=== PATIENT | male | born 1975 | race African-American/Black ===

== ENCOUNTER 2016-06-16 04:36 | Emergency (ER) | payer SELFPAY ==
[2016-06-16 04:44] VITALS: BP 129/87
[2016-06-16] MEDS ORDERED: HYDROCODONE/ACETAMINOPHEN 5-325 MG 6 TAB/DSPK PO PRN (05:24)
[2016-06-16] MEDS ORDERED: PENICILLIN V POTASSIUM 500 MG TABLET PO ONE (05:24)
--- NOTE | 2016-06-16 05:28 | ER Document Report ---
HPI - HPI Patient complains to provider of: dental pain Pain Level: 4 Context: Patient is a 40-year-old male that comes emergency department for chief complaint of pain in the left lower part of his jaw, he states symptoms started worsening about 2 days ago, he states he has a known fracture of the tooth that happened a while ago. He denies sore throat, neck pain, fever, history of the same. Eyes any daily medications or known past medical history. - DERM Skin Color: Normal Past Medical History - General Information source: Patient - Social History Smoking Status: Never Smoker Frequency of alcohol use: None Drug Abuse: None Lives with: Family Family History: Reviewed & Not Pertinent Patient has suicidal ideation: No Patient has homicidal ideation: No - Medical History Medical History: Negative Renal/ Medical History: Denies: Hx Peritoneal Dialysis Surgical Hx: Negative - Immunizations Immunizations up to date: Yes Hx Diphtheria, Pertussis, Tetanus Vaccination: Yes Vertical Provider Document - CONSTITUTIONAL General Appearance: WD/WN, Mild Distress - Patient holding his left jaw - INFECTION CONTROL TRAVEL OUTSIDE OF THE [place] IN LAST 30 DAYS: No - HEENT HEENT: Atraumatic, Normocephalic. negative: Pharyngeal Exudate, Pharyngeal Tenderness Mouth Diagram: 1 - Dental fracture with decay and mild surrounding erythema, no drainable abscess, no other abnormalities - NECK Neck: Normal Inspection - RESPIRATORY Respiratory: Breath Sounds Normal, No Respiratory Distress O2 Sat by Pulse Oximetry: 97 - CARDIOVASCULAR Cardiovascular: Regular Rate, Regular Rhythm - GI/ABDOMEN Gastrointestinal: Abdomen Soft, Abdomen Non-Tender - BACK Back: Normal Inspection - NEURO Level of Consciousness: Awake, Alert, Appropriate Motor/Sensory: No Motor Deficit, No Sensory Deficit - DERM Integumentary: Warm, Dry, No Rash Course - Vital Signs Vital signs: Temp Pulse Resp BP Pulse Ox 98.3 F 98 16 129/87 H 97 06/16/16 04:41 06/16/16 04:41 06/16/16 04:41 06/16/16 04:41 06/16/16 04:41 Discharge - Discharge Clinical Impression: Pain, dental Condition: Stable Disposition: HOME, SELF-CARE Additional Instructions: Take the penicillin antibiotic as directed. Take the pain medication if needed. Follow-up with the dentist, see list, if you do not this will continue to occur. Return to the emergency department for any concerning worsening symptoms. Prescriptions: Hydrocodone/Acetaminophen [[place] 5-325 mg Tablet] 1 - 2 tab PO ASDIR #12 tablet Penicillin V Potassium [Penicillin Vk 500 mg Tablet] 500 mg PO BID #20 tablet Forms: Return to Work
== END 2016-06-16 05:30 | disposition home or self-care (01) ==
LOC: ER 04:36
DX: K08.89 Other specified disorders of teeth and supporting structures (principal); R68.84 Jaw pain
CPT/HCPCS: 99282

== ENCOUNTER 2016-06-24 00:37 | Emergency (ER) | payer SELFPAY ==
[2016-06-24] MEDS ORDERED: AMOXICILLIN TRIHYDRATE 500 MG CAPSULE PO ONE (01:28)
[2016-06-24] MEDS ORDERED: IBUPROFEN 600 MG TABLET PO ONE (01:28)
--- NOTE | 2016-06-24 01:28 | ER Document Report ---
ED Oral Problem - General Mode of Arrival: Ambulatory Information source: Patient TRAVEL OUTSIDE OF THE [place] IN LAST 30 DAYS: No - HPI Patient complains to provider of: Toothache Onset: Other Quality of pain: Achy Similar symptoms previously: Yes Recently seen / treated by doctor/dentist: Yes - General Chief Complaint: Toothache Stated Complaint: TOOTHACHE Notes: Patient is a 40-year-old male that presents to the emergency department today with complaints of dental pain. Patient was seen 2 weeks ago for the same pain. Patient never followed up with a dentist as directed. Patient also did not take his antibiotics as prescribed. (LIZZETTE SMITH) - Related Data Allergies/Adverse Reactions: No Known Allergies Allergy (Unverified 06/24/16 00:48) Past Medical History - General Information source: Patient - Social History Smoking Status: Current Every Day Smoker Cigarette use (# per day): Yes Frequency of alcohol use: None Drug Abuse: None Family History: Reviewed & Not Pertinent Patient has suicidal ideation: No Patient has homicidal ideation: No - Medical History Medical History: Negative Surgical Hx: Negative - Immunizations Immunizations up to date: Yes Hx Diphtheria, Pertussis, Tetanus Vaccination: Yes Review of Systems - Review of Systems Constitutional: No symptoms reported EENT: See HPI, Dental problem Cardiovascular: No symptoms reported Respiratory: No symptoms reported Gastrointestinal: No symptoms reported Genitourinary: No symptoms reported Male Genitourinary: No symptoms reported Musculoskeletal: No symptoms reported Skin: No symptoms reported Hematologic/Lymphatic: No symptoms reported Neurological/Psychological: No symptoms reported -: Yes All other systems reviewed and negative Physical Exam - Vital signs Vitals: Temp Pulse Resp BP Pulse Ox 98.3 F 95 16 125/78 96 06/24/16 00:45 06/24/16 00:45 06/24/16 00:45 06/24/16 00:45 06/24/16 00:45 - Notes Notes: Physical Exam: General: Alert, appears well. HEENT: Normocephalic. Atraumatic. PERRL. Extraocular movements intact. Oropharynx clear. Decayed dentition throughout with overlying nicotine stains. Dental caries throughout. Neck: Supple. Respiratory: No respiratory distress. Abdominal: Normal Inspection. No distension. Extremities: Moves all four extremities. Neurological: Cranial nerves II-XII grossly intact bilaterally. Normal cognition. AAOx4. Normal speech. Psychological: Normal affect. Normal Mood. Skin: Warm. Dry. Normal color. (LIZZETTE SMITH) Course - Re-evaluation Re-evalutation: 06/24/16 01:30 Patient presents emergency Department with request for pain medication. He was seen and evaluated on 427 with dental problems did not take his antibiotics took his pain medication didn't follow primary care or dentist as directed still bothering him now both of his bilateral molars are ground down are not new or different there is no associated. No abscess swelling or abscess no facial tenderness difficulty breathing or swallowing. Encourage the patient that were going give him another dose of amoxicillin and Motrin will not give him any narcotics for this. He is instructed to follow up with the clinic which we have given him and his dental physician for any ongoing chronic related complaints regards to his teeth as we are not dentists and discussed reasons for ED return sooner (KASEY PHELAN) - Vital Signs Vital signs: Temp Pulse Resp BP Pulse Ox 97.8 F 82 16 128/72 H 95 06/24/16 01:52 06/24/16 01:52 06/24/16 01:52 06/24/16 01:52 06/24/16 01:52 Discharge - Discharge Clinical Impression: recurrent visit odontalgia, poor overall dentition Condition: Stable Disposition: HOME, SELF-CARE Instructions: [facility], Toothache ([facility]), Penicillin V K ([facility]) Prescriptions: Ibuprofen [Motrin 600 Mg Tablet] 600 mg PO TID #12 tablet Penicillin V Potassium [Penicillin Vk 500 mg Tablet] 500 mg PO BID #20 tablet Referrals: [facility] [Provider Group] (Call for an appointment to be seen in 3-4 days you must see primary care physician or dentist for any ongoing proms with your teeth return for increasing worsening or new symptoms) Scribe Attestation: 06/24/16 01:30 I personally performed the services described in the documentation reviewed the documentation recorded by my scribe in my presence and it accurately and completely records my words and actions (KASEY PHELAN) Scribe Documentation - Scribe Written by Madi:: Madi Byrnes, [id number] 06/24/2016 acting as scribe for :: Marv
[2016-06-24 01:54] VITALS: BP 128/72
== END 2016-06-24 01:54 | disposition home or self-care (01) ==
LOC: ER 00:37
DX: K08.9 Disorder of teeth and supporting structures, unspecified (principal); F17.210 Nicotine dependence, cigarettes, uncomplicated
CPT/HCPCS: 99282

== ENCOUNTER 2016-07-29 10:51 | Emergency (ER) | payer SELFPAY ==
--- NOTE | 2016-07-29 11:42 | ER Document Report ---
ED Medical Screen (RME) - General Chief Complaint: Abdominal Pain Stated Complaint: ABDOMINAL PAIN Time Seen by Provider: 07/29/16 11:34 Mode of Arrival: Medic Information source: Patient Notes: This 40-year-old male patient comes emergency room by EMS complaining of mid abdomen and left upper quadrant abdominal pain. It is been going on for a few days. He drinks 12 pack per evening by history. He was seen at [facility] emergency room last month for the same thing. I have greeted and performed a rapid initial assessment of this patient. A comprehensive ED assessment and evaluation of the patient, analysis of test results and completion of the medical decision making process will be conducted by additional ED providers. TRAVEL OUTSIDE OF THE [place] IN LAST 30 DAYS: No - Related Data Allergies/Adverse Reactions: No Known Allergies Allergy (Verified 07/29/16 10:57) Past Medical History - Social History Chew tobacco use (# tins/day): No Frequency of alcohol use: Heavy Drug Abuse: Marijuana Renal/ Medical History: Denies: Hx Peritoneal Dialysis Surgical Hx: Negative - Immunizations Immunizations up to date: Yes Hx Diphtheria, Pertussis, Tetanus Vaccination: Yes Physical Exam - Vital signs Vitals: Temp Pulse Resp BP Pulse Ox 98.5 F 88 16 127/89 H 100 07/29/16 10:57 07/29/16 10:57 07/29/16 10:57 07/29/16 10:57 07/29/16 10:57 Course - Vital Signs Vital signs: Temp Pulse Resp BP Pulse Ox 98.5 F 88 16 127/89 H 100 07/29/16 10:57 07/29/16 10:57 07/29/16 10:57 07/29/16 10:57 07/29/16 10:57
[2016-07-29 12:27] LABS: ABSOLUTE BASOPHILS # (AUTO) 0.1 10^3/uL (0.0-0.2); ABSOLUTE EOSINOPHILS # (AUTO) 0.2 10^3/uL (0.0-0.6); ABSOLUTE NEUT (AUTO) 5.6 10^3/uL (1.7-8.2); BASOPHILS % (AUTO) 0.9 % (0-2); EOSINOPHILS % (AUTO) 2.3 % (0-6); HEMATOCRIT 49.9 % (37.9-51.0); HEMOGLOBIN 17.1 g/dL (13.5-17.0); HGB HCT DIFFERENCE 1.4; LYMPHOCYTES % (AUTO) 13.3 % (13-45); MEAN CORPUSCULAR HEMOGLOBIN 35.2 pg (27.0-33.4); MEAN CORPUSCULAR HGB CONC 34.3 g/dL (32.0-36.0); MEAN CORPUSCULAR VOLUME 103 fl (80-97); MONOCYTES % (AUTO) 12.3 % (3-13); RED BLOOD COUNT 4.86 10^6/uL (4.35-5.55); RED CELL DISTRIBUTION WIDTH 13.3 % (11.5-14.0); SEGMENTED NEUTROPHILS % (AUTO) 71.2 % (42-78); WHITE BLOOD COUNT 7.8 10^3/uL (4.0-10.5)
[2016-07-29 12:54] LABS: ALANINE AMINOTRANSFERASE 34 U/L (21-72); ALBUMIN 4.5 g/dL (3.5-5.0); ALKALINE PHOSPHATASE 69 U/L (38-126); ANION GAP 11 (5-19); ASPARTATE AMINO TRANSFERASE 36 U/L (17-59); BILIRUBIN,DIRECT 0.4 mg/dL (0.0-0.4); BILIRUBIN,TOTAL 0.7 mg/dL (0.2-1.3); BLOOD UREA NITROGEN 8 mg/dL (7-20); CALCIUM 10.1 mg/dL (8.4-10.2); CARBON DIOXIDE 31 mmol/L (22-30); CHLORIDE 95 mmol/L (98-107); CREATININE RESULT 0.98 mg/dL (0.52-1.25); GLUCOSE 73 mg/dL (75-110); LIPASE 26.3 U/L (23-300); SODIUM 137.4 mmol/L (137-145); TOTAL PROTEIN 8.2 g/dL (6.3-8.2)
[2016-07-29 12:55] LABS: POTASSIUM 4.8 mmol/L (3.6-5.0)
[2016-07-29 13:24] LABS: URINE BARBITURATES SCREEN NEGATIVE; URINE METHADONE SCREEN NEGATIVE; URINE OPIATES LOW NEGATIVE; URINE PHENCYCLIDINE SCREEN NEGATIVE
[2016-07-29 13:25] LABS: APPEARANCE,URINE CLEAR; BILIRUBIN,URINE NEGATIVE (NEGATIVE); GLUCOSE, URINE >=500 mg/dL (NEGATIVE); KETONES,URINE NEGATIVE (NEGATIVE); LEUKOCYTE ESTERASE,URINE NEGATIVE (NEGATIVE); NITRITE,URINE NEGATIVE (NEGATIVE); PROTEIN,URINE NEGATIVE (NEGATIVE); URINE SPECIFIC GRAVITY 1.028
[2016-07-29] MEDS ORDERED: PANTOPRAZOLE SODIUM 40 MG VIAL IV ONE (14:03)
[2016-07-29] MEDS ORDERED: LIDOCAINE 2% VISCOUS SOLN 20 ML UDCUP PO ONE (14:03)
[2016-07-29] MEDS ORDERED: METOCLOPRAMIDE HCL ORAL SOLN 10 MG/10 ML UDCUP PO ONE (14:03)
[2016-07-29] MEDS ORDERED: MAG HYDROX/AL HYDROX/SIMETH SUSP 30 ML UDCUP PO ONE (14:03)
--- NOTE | 2016-07-29 14:06 | ER Document Report ---
ED General - General Chief Complaint: Abdominal Pain Stated Complaint: ABDOMINAL PAIN Time Seen by Provider: 07/29/16 11:34 Mode of Arrival: Medic Information source: Patient Notes: This is a 40-year-old male with a history of alcohol abuse who presents for evaluation of left-sided abdominal pain. He states that this pain is been progressing for the past 3 days but became severe today. He has had nausea and vomiting and his last emesis was yesterday. He had a loose bowel movement yesterday. He denies fevers or chills. No cough or congestion. No urinary symptoms. Of note he states he had similar symptoms a month or 2 ago and was seen at outside ER and states he was diagnosed with gastroenteritis. He states he feels much worse today. TRAVEL OUTSIDE OF THE [place] IN LAST 30 DAYS: No - Related Data Allergies/Adverse Reactions: No Known Allergies Allergy (Verified 07/29/16 10:57) Past Medical History - General Information source: Patient - Social History Smoking Status: Current Every Day Smoker Chew tobacco use (# tins/day): No Frequency of alcohol use: Heavy Drug Abuse: Marijuana Family History: Reviewed & Not Pertinent Patient has suicidal ideation: No Patient has homicidal ideation: No Renal/ Medical History: Denies: Hx Peritoneal Dialysis Surgical Hx: Negative - Immunizations Immunizations up to date: Yes Hx Diphtheria, Pertussis, Tetanus Vaccination: Yes Review of Systems - Review of Systems Constitutional: No symptoms reported. denies: Chills, Fever EENT: No symptoms reported Cardiovascular: No symptoms reported Respiratory: No symptoms reported Gastrointestinal: See HPI Genitourinary: No symptoms reported Musculoskeletal: No symptoms reported Skin: No symptoms reported Hematologic/Lymphatic: No symptoms reported Neurological/Psychological: No symptoms reported Physical Exam - Vital signs Vitals: Temp Pulse Resp BP Pulse Ox 98.5 F 88 16 127/89 H 100 07/29/16 10:57 07/29/16 10:57 07/29/16 10:57 07/29/16 10:57 07/29/16 10:57 - Notes Notes: PHYSICAL EXAMINATION: GENERAL: Well-appearing, well-nourished and in no acute distress. Very pleasant and conversant HEAD: Atraumatic, normocephalic. EYES: Pupils equal round and reactive to light, extraocular movements intact, sclera anicteric, conjunctiva are normal. ENT: nares patent, oropharynx clear without exudates. Moist mucous membranes. NECK: Normal range of motion, supple without lymphadenopathy LUNGS: Breath sounds clear to auscultation bilaterally and equal. No wheezes rales or rhonchi. HEART: Regular rate and rhythm without murmurs ABDOMEN: Soft, mild TTP to left mid abdomen, normoactive bowel sounds. No guarding, no rebound. No masses appreciated. EXTREMITIES: Normal range of motion, no pitting or edema. NEUROLOGICAL: Cranial nerves grossly intact. Normal speech, normal gait. No gross focal motor or sensory deficits appreciated. PSYCH: Normal mood, normal affect. SKIN: Warm, Dry, normal turgor, no rashes or lesions noted. Course - Re-evaluation Re-evalutation: 07/29/16 20:[address] results with pateint and stressed importance of followup with PCP and with GI for further evaluation. Pt voiced understanding. He is feeling better and would like to go home. Return precautions discussed. - Vital Signs Vital signs: Temp Pulse Resp BP Pulse Ox 98 F 75 16 121/87 H 100 07/29/16 18:21 07/29/16 18:21 07/29/16 18:21 07/29/16 18:21 07/29/16 18:21 - Laboratory Result Diagrams: 07/29/16 11:45 07/29/16 11:45 Laboratory results interpreted by me: 07/29/16 07/29/16 07/29/16 11:45 11:45 11:45 Hgb 17.1 H MCV 103 H MCH 35.2 H Chloride 95 L Carbon Dioxide 31 H Glucose 73 L Urine Glucose (UA) >=500 H Urine Urobilinogen 2.0 H - Diagnostic Test Radiology reviewed: Reports reviewed - CT: gastric wall thickening Discharge - Discharge Clinical Impression: Gastric wall thickening Abdominal pain Qualifiers: Abdominal location: unspecified location Qualified Code(s): R10.9 - Unspecified abdominal pain Condition: Stable Disposition: HOME, SELF-CARE Additional Instructions: ABDOMINAL PAIN: There are many causes of abdominal pain. Pain can mean a serious problem requiring surgery (such as appendicitis). It can also be an innocent problem that goes away on its own (such as a viral infection). Often, time must pass to determine the cause of pain. The physician does not feel that hospitalization is necessary, at present. Things may change within the next 24 hours. Call the doctor or come back for re- examination if any problems occur, such as: (1) Pain that becomes more severe, steady, or becomes concentrated in one specific area. Also, pain that is more severe with movement or coughing. (2) Vomiting that persists or becomes more frequent. (3) Blood in the vomitus, urine, or bowel movements. Blood in the stool may have a tarry or black appearance. (4) Shaking chills or fever greater than 100 degrees F. (5) The abdomen becomes more distended or swollen. (6) Bowel movements cease. (7) Failure to improve as expected. ANTINAUSEA MEDICATION: You have been given a medication to suppress nausea and vomiting. This type of medication can be given as a shot, pill, or suppository. It will usually last for many hours. Pills and shots usually last six to eight hours, suppositories last about 12 hours. For the typical illness, only one or two doses of the medication may be necessary. Mild lightheadedness may occur. This type of medicine can cause drowsiness. Do not drive or operate dangerous machinery while under its influence. Do not mix with alcohol. See your doctor at once if you have muscle spasms or tightness, or uncontrollable motions (particularly of the neck, mouth, or jaw). Persistent vomiting or severe lightheadedness should also be evaluated by the physician. ALCOHOL ABUSE Alcohol overdosage is usually due to an underlying emotional or psychiatric problem. You may benefit from counselling. If "binge" drinking is an ongoing problem for you, or if you drink ANY AMOUNT of alcohol EVERY day, you most likely have a tendency to alcoholism. You should avoid alcohol totally. We can refer you for treatment. Persons with alcohol problems are often also prone to other addictions -- you should discuss any use of medications or drugs with the doctor. Get extra fluids for the next 24 hours. Call the doctor if there is repeated vomiting, increasing headache, decreasing level of alertness, or any other worsening. FOLLOW-UP CARE: If you have been referred to a physician for follow-up care, call the physician s office for an appointment as you were instructed or within the next two days. If you experience worsening or a significant change in your symptoms, notify the physician immediately or return to the Emergency Department at any time for re-evaluation. Follow up with GI Dr[facility] clinic this week as instructed. Your CT demonstrated wall thickening of your stomach, which requires further evaluation to determine the cause and treatment. It is very important that you follow up with GI, call the office on Monday. Prescriptions: Promethazine HCl [Phenergan 25 mg Tablet] 1 tab PO Q6H PRN #12 tablet PRN Reason: Ranitidine HCl [Zantac 150 mg Tablet] 150 mg PO BID #60 tablet Referrals: LARISSA DE LA PAZ MD [ACTIVE STAFF] - Follow up in 3-5 days
--- NOTE | 2016-07-29 17:47 | RADIOLOGY REPORT (SQ) ---
EXAM DESCRIPTION: CT ABD/PELVIS WITH IV ORAL COMPLETED DATE/TIME: 07/29/2016 5:16 pm REASON FOR STUDY: left sided abdominal pain, N/V COMPARISON: None. TECHNIQUE: CT scan of the abdomen and pelvis performed using helical scanning technique with dynamic intravenous contrast injection. Oral contrast. Images reviewed with lung, soft tissue, and bone win dows. Reconstructed coronal and sagittal MPR images reviewed. Delayed images for evaluation of the ur inary system also acquired. All images stored on PACS. All CT scanners at this facility use dose modulation, iterative reconstruction, and/or weight based d osing when appropriate to reduce radiation dose to as low as reasonably achievable (ALARA). [facility]: Dose Right [facility]: CareDose [facility]: Dose Right [facility]: Teradose 4D [facility]: mInfo CONTRAST TYPE AND DOSE: 75 cc Isovue 370- low osmolar. RENAL FUNCTION: Creatinine 1 BUN 8 RADIATION DOSE: 11.60mGy. LIMITATIONS: None. FINDINGS: LOWER CHEST: No significant findings. No nodules or infiltrates. LIVER: Normal size. No masses or dilated ducts. SPLEEN: Normal size. No focal lesions. PANCREAS: No masses. No significant calcifications. No adjacent inflammation or peripancreatic fluid collections. Pancreatic duct not dilated. GALLBLADDER: No identified stones by CT criteria. No inflammatory changes to suggest cholecystitis. ADRENAL GLANDS: No significant masses or asymmetry. RIGHT KIDNEY AND URETER: No solid masses. No significant calcifications. No hydronephrosis or hyd roureter. LEFT KIDNEY AND URETER: No solid masses. No significant calcifications. No hydronephrosis or hydr oureter. AORTA AND VESSELS: No aneurysm. No dissection. Renal arteries, SMA, celiac without stenosis. RETROPERITONEUM: No retroperitoneal adenopathy, hemorrhage or masses. BOWEL AND PERITONEAL CAVITY: There is significant thickening of the wall of the stomach. APPENDIX: Not identified. PELVIS: No mass or free fluid. Normal bladder. ABDOMINAL WALL: No masses. No hernias. BONES: No significant or acute findings. OTHER: No other significant finding. IMPRESSION: There is marked thickening of the wall of the stomach. Consider gastric lymphoma, Menet rier disease, gastritis. TECHNICAL DOCUMENTATION: JOB ID: [id number] Quality ID # [id number]: Final reports with documentation of one or more dose reduction techniques (e.g., Au tomated exposure control, adjustment of the mA and/or kV according to patient size, use of iterative reconstruction technique) 2010 [employer]- All Rights Reserved
[2016-07-29 18:22] VITALS: BP 121/87
== END 2016-07-29 18:35 | disposition home or self-care (01) ==
LOC: ER 10:51
DX: R10.9 Unspecified abdominal pain (principal); F17.200 Nicotine dependence, unspecified, uncomplicated; R19.7 Diarrhea, unspecified
CPT/HCPCS: 99284; 96374; 36415; 80307 ×2; 83690; 85025; 80053; 81001; 74177; J3490; S0164

== ENCOUNTER 2016-08-16 13:49 | Emergency (ER) | payer SELFPAY ==
[2016-08-16] MEDS ORDERED: ONDANSETRON HCL INJ/PF 4 MG/2 ML SDV IV ONE (14:39)
[2016-08-16] MEDS ORDERED: FAMOTIDINE INJ/PF 20 MG/2 ML SDV IV ONE (14:39)
[2016-08-16] MEDS ORDERED: NORMAL SALINE 1000 ML 1,000 ML IV PRN (14:39)
--- NOTE | 2016-08-16 14:44 | ER Document Report ---
ED GI/ - General Chief Complaint: Abdominal Pain Stated Complaint: ABDOMINAL PAIN Time Seen by Provider: 08/16/16 14:16 Mode of Arrival: Ambulatory Information source: Patient TRAVEL OUTSIDE OF THE [place] IN LAST 30 DAYS: No - HPI Patient complains to provider of: Abdominal pain, Vomiting Onset: Other - 2-3 days Timing/Duration: Gradual Quality of pain: Achy Severity at maximum: Severe Severity in ED: Severe Pain Level: 4 Location: Left flank Associated symptoms: Loss of appetite, Nausea, Vomiting Exacerbated by: Denies Relieved by: Denies Similar symptoms previously: Yes Recently seen / treated by doctor: Yes Notes: 08/16/16 14:42 Patient is a 40-year-old male with no diagnosed past medical history, presents to the emergency room complaining of left-sided abdominal pain with nausea and vomiting that started 2 days ago, he reports he is brownish colored vomitus which appears to be blood, he was a heavy drinker up until 2 weeks ago, he was seen in this emergency room on 07/29/2016 and diagnosed with gastric wall thickening, was given a prescription for Phenergan and ranitidine which he states he did not fill because he could not afford, states he has not had an alcoholic beverage since that visit as well, and he has not had the opportunity to follow-up with a primary care provider or livestock haulier as well, he is a smoker, denies any abdominal surgeries in the past, not currently taking any medications - Related Data Allergies/Adverse Reactions: No Known Allergies Allergy (Verified 07/29/16 10:57) Past Medical History - General Information source: Patient - Social History Smoking Status: Current Every Day Smoker Frequency of alcohol use: former Drug Abuse: None Family History: Reviewed & Not Pertinent Renal/ Medical History: Denies: Hx Peritoneal Dialysis Surgical Hx: Negative - Immunizations Immunizations up to date: Yes Hx Diphtheria, Pertussis, Tetanus Vaccination: Yes Review of Systems - Review of Systems Constitutional: No symptoms reported EENT: No symptoms reported Cardiovascular: No symptoms reported Respiratory: No symptoms reported Gastrointestinal: See HPI Genitourinary: No symptoms reported Male Genitourinary: No symptoms reported Musculoskeletal: No symptoms reported Skin: No symptoms reported Hematologic/Lymphatic: No symptoms reported Neurological/Psychological: No symptoms reported -: Yes All other systems reviewed and negative Physical Exam - Vital signs Vitals: Temp Pulse Resp BP Pulse Ox 97.8 F 93 18 94/62 L 100 08/16/16 13:58 08/16/16 13:58 08/16/16 13:58 08/16/16 13:58 08/16/16 13:58 Interpretation: Hypotensive - General General appearance: Appears well, Alert - HEENT Head: Normocephalic, Atraumatic Eyes: Normal Pupils: PERRL - Respiratory Respiratory status: No respiratory distress Chest status: Nontender Breath sounds: Normal Chest palpation: Normal - Cardiovascular Rhythm: Regular Heart sounds: Normal auscultation Murmur: No - Abdominal Inspection: Normal Distension: No distension Bowel sounds: Normal Tenderness: Tender - Tenderness to palpate in the left mid abdomen Organomegaly: No organomegaly - Back Back: Normal, Nontender - Extremities General upper extremity: Normal inspection, Nontender, Normal color, Normal ROM , Normal temperature General lower extremity: Normal inspection, Nontender, Normal color, Normal ROM , Normal temperature, Normal weight bearing. No: Gilbert's sign - Neurological Neuro grossly intact: Yes Cognition: Normal Orientation: AAOx4 Joanna Coma Scale Eye Opening: Spontaneous Joanna Coma Scale Verbal: Oriented [place] Coma Scale Motor: Obeys Commands [place] Coma Scale Total: 15 Speech: Normal Motor strength normal: LUE, RUE, LLE, RLE Sensory: Normal - Psychological Associated symptoms: Normal affect, Normal mood - Skin Skin Temperature: Warm Skin Moisture: Dry Skin Color: Normal Course - Re-evaluation Re-evalutation: 08/16/16 15:59 Reports feeling much better and requesting something to drink, he was given juice and crackers, if he tolerates p.o. intake he will be discharged with instructions for follow-up, patient acknowledges understanding and agreement with this plan symptoms are consistent with gastritis, were discussed with patient at bedside which are unremarkable, physical exam findings are unremarkable with no abdominal tenderness on reevaluation - Vital Signs Vital signs: Temp Pulse Resp BP Pulse Ox 97.8 F 93 18 94/62 L 100 08/16/16 13:58 08/16/16 13:58 08/16/16 13:58 08/16/16 13:58 08/16/16 13:58 - Laboratory Result Diagrams: 08/16/16 13:55 08/16/16 13:55 Laboratory results interpreted by me: 08/16/16 08/16/16 13:55 13:55 RBC 4.03 L MCV 101 H MCH 34.4 H Carbon Dioxide 31 H ALT 20 L Albumin 3.3 L Discharge - Discharge Clinical Impression: Gastritis Qualifiers: Gastritis type: unspecified gastritis Chronicity: chronic Gastritis bleeding: presence of bleeding unspecified Qualified Code(s): K29.50 - Unspecified chronic gastritis without bleeding Condition: Stable Disposition: HOME, SELF-CARE Instructions: Abdominal Pain ([facility]), Gastritis ([facility]), Gastroenterology Additional Instructions: Follow up with your primary care provider in one to 2 days. Return to the emergency room immediately if symptoms worsen or any additional concerns. Prescriptions: Metoclopramide HCl [Reglan 10 mg Tablet] 1 - 2 tab PO ASDIR PRN #25 tablet PRN Reason: Sucralfate [Carafate 1 gm Tablet] 1 gm PO ACHS #120 tablet Forms: Smoking Cessation Education
[2016-08-16 14:46] LABS: ABSOLUTE BASOPHILS # (AUTO) 0.1 10^3/uL (0.0-0.2); ABSOLUTE EOSINOPHILS # (AUTO) 0.4 10^3/uL (0.0-0.6); ABSOLUTE LYMPHOCYTES (AUTO) 1.5 10^3/uL (0.5-4.7); ABSOLUTE MONOCYTES (AUTO) 0.9 10^3/uL (0.1-1.4); ABSOLUTE NEUT (AUTO) 6.1 10^3/uL (1.7-8.2); BASOPHILS % (AUTO) 1.2 % (0-2); HEMATOCRIT 40.7 % (37.9-51.0); HEMOGLOBIN 13.9 g/dL (13.5-17.0); LYMPHOCYTES % (AUTO) 16.7 % (13-45); MEAN CORPUSCULAR HEMOGLOBIN 34.4 pg (27.0-33.4); MEAN CORPUSCULAR VOLUME 101 fl (80-97); MONOCYTES % (AUTO) 10.2 % (3-13); RED BLOOD COUNT 4.03 10^6/uL (4.35-5.55); RED CELL DISTRIBUTION WIDTH 13.1 % (11.5-14.0); SEGMENTED NEUTROPHILS % (AUTO) 67.9 % (42-78); WHITE BLOOD COUNT 8.9 10^3/uL (4.0-10.5)
[2016-08-16 14:47] LABS: APPEARANCE,URINE CLEAR; BILIRUBIN,URINE NEGATIVE (NEGATIVE); GLUCOSE, URINE NEGATIVE (NEGATIVE); KETONES,URINE NEGATIVE (NEGATIVE); LEUKOCYTE ESTERASE,URINE NEGATIVE (NEGATIVE); NITRITE,URINE NEGATIVE (NEGATIVE); PROTEIN,URINE NEGATIVE (NEGATIVE); URINE SPECIFIC GRAVITY 1.016; UROBILINOGEN,URINE NEGATIVE mg/dL (<2.0)
[2016-08-16 15:03] LABS: ALANINE AMINOTRANSFERASE 20 U/L (21-72); ALBUMIN 3.3 g/dL (3.5-5.0); ALKALINE PHOSPHATASE 58 U/L (38-126); ANION GAP 9 (5-19); ASPARTATE AMINO TRANSFERASE 17 U/L (17-59); BILIRUBIN,DIRECT 0.3 mg/dL (0.0-0.4); BILIRUBIN,TOTAL 0.3 mg/dL (0.2-1.3); BLOOD UREA NITROGEN 12 mg/dL (7-20); CALCIUM 9.2 mg/dL (8.4-10.2); CARBON DIOXIDE 31 mmol/L (22-30); CHLORIDE 98 mmol/L (98-107); CREATININE RESULT 0.92 mg/dL (0.52-1.25); GLUCOSE 95 mg/dL (75-110); LIPASE 30.6 U/L (23-300); POTASSIUM 4.6 mmol/L (3.6-5.0); SODIUM 137.5 mmol/L (137-145); TOTAL PROTEIN 6.3 g/dL (6.3-8.2)
[2016-08-16 15:05] LABS: ALCOHOL < 10 mg/dL (NONE DETECTED)
[2016-08-16 15:31] LABS: URINE BARBITURATES SCREEN NEGATIVE; URINE METHADONE SCREEN NEGATIVE; URINE OPIATES LOW NEGATIVE; URINE PHENCYCLIDINE SCREEN NEGATIVE
[2016-08-16 16:16] VITALS: BP 126/65
== END 2016-08-16 16:17 | disposition home or self-care (01) ==
LOC: ER 13:49
DX: K29.50 Unspecified chronic gastritis without bleeding (principal); R10.9 Unspecified abdominal pain; R11.2 Nausea with vomiting, unspecified; F17.200 Nicotine dependence, unspecified, uncomplicated
CPT/HCPCS: 99284; 96361; 96374; 96375; 36415; 80307 ×2; 83690; 85025; 80053; 81001; J2405; J7030; S0028

== ENCOUNTER 2016-08-16 23:54 | Inpatient (IN) | payer SELFPAY ==
[2016-08-17] MEDS ORDERED: NORMAL SALINE 250 ML IV PRN ×5 (00:03→11:19)
[2016-08-17] MEDS ORDERED: PANTOPRAZOLE SODIUM 40 MG VIAL IV PRN (00:14)
[2016-08-17] MEDS ORDERED: PANTOPRAZOLE SODIUM 40 MG VIAL IV ONE (00:14)
[2016-08-17] MEDS ORDERED: NORMAL SALINE 1000 ML 1,000 ML IV ONE (00:18)
--- NOTE | 2016-08-17 00:20 | ER Document Report ---
ED General - General Chief Complaint: Vomiting Stated Complaint: VOMITING BLOOD/DIZZINESS Time Seen by Provider: 08/17/16 00:01 Cannot obtain history due to: Unstable vital signs Notes: Patient is a 40-year-old male who presents with massive hematemesis after being discharged several hours ago. Per chart review at that time patient was well- appearing, had no additional episodes of vomiting, tolerated oral intake without any difficulty and was hemodynamically within normal limits. His hemoglobin at that time was within normal limits. Patient has been evaluated on several occasions in the emergency department for epigastric abdominal pain has been referred to GI but apparently has been unable to follow-up due to insurance complications. Patient vomited over 1500 cc of bright red blood per EMS and per the spouse at the bedside had even more at home. No history of similar episodes in the past. Patient states he feels lightheaded and like he is going to pass out. The remainder of history is limited due to the critical nature of this patient and the need to expedite workup and management. TRAVEL OUTSIDE OF THE [place] IN LAST 30 DAYS: No - Related Data Allergies/Adverse Reactions: No Known Allergies Allergy (Verified 07/29/16 10:57) Past Medical History - General Information source: Patient - Social History Smoking Status: Unknown if Ever Smoked Frequency of alcohol use: None Drug Abuse: None Lives with: Spouse/Significant other Family History: Reviewed & Not Pertinent Renal/ Medical History: Denies: Hx Peritoneal Dialysis - Immunizations Immunizations up to date: Yes Hx Diphtheria, Pertussis, Tetanus Vaccination: Yes Review of Systems - Review of Systems Notes: Constitutional: Negative for fever. HENT: Negative for sore throat. Eyes: Negative for visual changes. Cardiovascular: Negative for chest pain. Respiratory: Negative for shortness of breath. Gastrointestinal: Positive for epigastric abdominal pain and hematemesis Genitourinary: Negative for dysuria. Musculoskeletal: Negative for back pain. Skin: Negative for rash. Neurological: Negative for headaches, weakness or numbness. 10 point ROS negative except as marked above and in HPI. Physical Exam - Vital signs Vitals: BP 101/64 08/17/16 00:00 Interpretation: Normal Notes: PHYSICAL EXAMINATION: GENERAL: Ill in appearance, diaphoretic HEAD: Atraumatic, normocephalic. EYES: Pupils equal round and reactive to light, extraocular movements intact, sclera anicteric, conjunctiva are normal. ENT: nares patent, oropharynx clear without exudates. Mucous membranes are stained with blood. Moderately dry NECK: Normal range of motion, supple without lymphadenopathy LUNGS: Breath sounds clear to auscultation bilaterally and equal. No wheezes rales or rhonchi. HEART: Regular tachycardia without murmurs ABDOMEN: Soft, epigastric abdominal tenderness to palpation, normoactive bowel sounds. No guarding, no rebound. No masses appreciated. EXTREMITIES: Normal range of motion, no pitting or edema. No cyanosis. NEUROLOGICAL: No focal neurological deficits. Moves all extremities spontaneously and on command. PSYCH: Normal mood, normal affect. SKIN: Warm, Dry, normal turgor, no rashes or lesions noted. Course - Re-evaluation Re-evalutation: 08/17/16 00:19 Patient arrives with a basin full of at least 1500 cc of bright red blood per his report had the same amount at home. This is concerning for a massive upper GI bleed. Immediately upon assessment patient I paged GI insurance professional Dr. De La Paz provide him that we needed an emergent endoscopy. I have also contacted blood bank and requested emergency release blood. Will begin transfusing 2 units at this time. Will also request plasma. The patient will be started on a Protonix infusion. He will be moved to the trauma bay. If he has any additional episodes of hematemesis I will proceed to intubate the patient. Patient is critically ill time and will require frequent reassessments. 08/17/16 00:37 No further episodes of vomiting. Beginning prbc transfusion. [address] FFP will arrive in the next 15-20mins per blood bank. 08/17/16 01:40 Patient's hemoglobin has had a dramatic decrease down to 9.2 from 13.9 and this is likely still artificially high. at bedside. 08/17/16 01:54 I have discussed the case with Dr. Tyson who will admit to the ICU 08/17/16 02:50 EJD is completed, no active bleeding at this time. He will transfer to ICU. - Vital Signs Vital signs: Temp Pulse Resp BP Pulse Ox 19 141/103 H 100 08/17/16 02:36 08/17/16 02:36 08/17/16 02:36 - Laboratory Result Diagrams: 08/17/16 00:13 Laboratory results interpreted by me: 08/17/16 08/17/16 08/17/16 00:13 00:13 00:13 WBC 11.8 H RBC 2.73 L Hgb 9.2 L D Hct 27.8 L MCV 102 H MCH 33.6 H Seg Neutrophils % 82.1 H Lymphocytes % 8.1 L Absolute Neutrophils 9.6 H PT 16.5 H Crossmatch See Detail Critical Care Note - Critical Care Note Total time excluding time spent on procedures (mins): 45 Comments: Critical care time spent obtaining history from patient or surrogate, discussions with consultants, development of treatment plan with patient or surrogate, evaluation of patient's response to treatment, examination of patient , ordering and performing treatments and interventions, ordering and review of laboratory studies, re-evaluation of patient's condition, ordering and review of radiographic studies and review of old charts Discharge - Discharge Clinical Impression: Gastrointestinal hemorrhage with hematemesis, Hemorrhage Condition: Critical Disposition: ADMITTED INPATIENT Admitting [facility] Admitted: ICU
[2016-08-17 00:48] LABS: ABSOLUTE BASOPHILS # (AUTO) 0.1 10^3/uL (0.0-0.2); ABSOLUTE EOSINOPHILS # (AUTO) 0.1 10^3/uL (0.0-0.6); ABSOLUTE NEUT (AUTO) 9.6 10^3/uL (1.7-8.2); BASOPHILS % (AUTO) 0.6 % (0-2); EOSINOPHILS % (AUTO) 1.1 % (0-6); HEMATOCRIT 27.8 % (37.9-51.0); HGB HCT DIFFERENCE -0.2; LYMPHOCYTES % (AUTO) 8.1 % (13-45); MEAN CORPUSCULAR HEMOGLOBIN 33.6 pg (27.0-33.4); MEAN CORPUSCULAR VOLUME 102 fl (80-97); MONOCYTES % (AUTO) 8.1 % (3-13); RED BLOOD COUNT 2.73 10^6/uL (4.35-5.55); RED CELL DISTRIBUTION WIDTH 12.9 % (11.5-14.0); SEGMENTED NEUTROPHILS % (AUTO) 82.1 % (42-78); WHITE BLOOD COUNT 11.8 10^3/uL (4.0-10.5)
[2016-08-17] MEDS ORDERED: NALOXONE HCL INJ/PF 0.4 MG/1 ML SDV ONE (01:03)
[2016-08-17 01:04] LABS: HEMOGLOBIN 9.2 g/dL (13.5-17.0)
[2016-08-17] MEDS ORDERED: EPINEPHRINE INJ 1 MG/10 ML DISP.SYRIN ONE ×4 (01:04→02:29)
[2016-08-17] MEDS ORDERED: GLUCAGON,HUMAN RECOMB 1 MG INJ ONE (01:04)
[2016-08-17] MEDS ORDERED: FLUMAZENIL INJ 0.5 MG/5 ML VIAL IV ONE (01:04)
[2016-08-17 01:31] LABS: PROTHROMBIN TIME 16.5 SEC (11.4-15.4)
[2016-08-17] MEDS: MIDAZOLAM 2 MG/2 ML INJ ONE ×4 (01:40→02:28)
[2016-08-17] MEDS: FENTANYL CITRATE INJ/PF 100 MCG/2 ML AMPUL ONE ×3 (01:42→02:32)
[2016-08-17] MEDS ORDERED: IPRATROPIUM/ALBUTEROL 0.5-2.5 MG/3 ML AMPUL NEB PRN (01:54)
[2016-08-17] MEDS ORDERED: ONDANSETRON HCL INJ/PF 4 MG/2 ML SDV IV PRN (01:54)
[2016-08-17] MEDS ORDERED: PHYTONADIONE INJ 10 MG/1 ML AMPULE SUBCUT ONE ×2 (02:00→12:15)
[2016-08-17] MEDS ORDERED: THIAMINE HCL 100 MG, FOLIC ACID 1 MG in NORMAL SALINE 50 ML IV ONE (02:00)
[2016-08-17] MEDS ORDERED: LORAZEPAM INJ 2 MG/1 ML VIAL IV PRN (02:01)
[2016-08-17] MEDS ORDERED: THIAMINE HCL INJ 200 MG/2 ML VIAL IV PRN (02:09)
[2016-08-17] MEDS ORDERED: FOLIC ACID INJ 5 MG/1 ML 10 ML VIAL IV PRN (02:10)
--- NOTE | 2016-08-17 02:43 | PDOC CONSULTATION ---
Consultation Consult Date: 08/17/16 History of Present Illness History of Present Illness: CHRISTOPHER OLIVARES is a 40 year old male who presented to the emergency room with acute upper GI bleeding. He had a small amount of hematemesis earlier in the day but it became more severe later. He vomited large vomited large amounts at home and also in the emergency room. He vomited at least 1500ml fresh blood with clots in the emergency room. He has been having epigastric pain off and on for the last few weeks. He was drinking had been abusing alcohol all his life but he stopped drinking a week ago. He does not take NSAIDs. He was seen at the emergency room earlier in the day when his hemoglobin was 13. Upon presentation this time his hemoglobin had dropped to 9. Social History Lives with: Spouse/Significant other Smoking Status: Unknown if Ever Smoked Family History Family History: Reviewed & Not Pertinent Parental Family History Reviewed: No Children Family History Reviewed: NA Sibling(s) Family History Reviewed.: NA Medication/Allergy Home Medications: Ibuprofen [Motrin 600 Mg Tablet] 600 mg PO TID #12 tablet 06/24/16 Penicillin V Potassium [Penicillin Vk 500 mg Tablet] 500 mg PO BID #20 tablet Promethazine HCl [Phenergan 25 mg Tablet] 1 tab PO Q6H PRN #12 tablet 07/29/16 Ranitidine HCl [Zantac 150 mg Tablet] 150 mg PO BID #60 tablet 07/29/16 Metoclopramide HCl [Reglan 10 mg Tablet] 1 - 2 tab PO ASDIR PRN #25 tablet 08/16 Sucralfate [Carafate 1 gm Tablet] 1 gm PO ACHS #120 tablet 08/16/16 Allergies/Adverse Reactions: No Known Allergies Allergy (Verified 07/29/16 10:57) Physical Exam Exam: General: Patient is alert and looks well. HEENT: There is palor. PERRLA. Oropharynx normal Respiratory: No chest deformity. No respiratory distress. Chest wall palpitation was unremarkable. Breath sounds were normal Cardiovascular: Heart sounds 1 and 2 normal with no murmurs. Abdominal: Not distended. Soft and nontender. Liver and spleen not palpable. No ascites demonstrated. Bowel sounds active. Rectal examination was deferred. Extremities: No edema Neurological: Alert and oriented x4. Grossly nonfocal. Normal speech Skin: No significant rash Psychological: Normal affect Results Laboratory Results: 08/17/16 00:13 08/17/16 08/17/16 00:13 00:13 WBC 11.8 H RBC 2.73 L Hgb 9.2 L D Hct 27.8 L MCV 102 H MCH 33.6 H MCHC 33.0 RDW 12.9 Plt Count 183 Seg Neutrophils % 82.1 H Lymphocytes % 8.1 L Monocytes % 8.1 Eosinophils % 1.1 Basophils % 0.6 Absolute Neutrophils 9.6 H Absolute Lymphocytes 1.0 Absolute Monocytes 1.0 Absolute Eosinophils 0.1 Absolute Basophils 0.1 Blood Type A NEGATIVE Antibody Screen NEGATIVE Assessment & Plan - Diagnosis (1) Gastrointestinal hemorrhage with hematemesis Is this a current diagnosis for this admission?: YesPlan: He has an acute upper GI bleeding and will undergo an emergent endoscopy. The risks and benefits was explained to the patient and he is in agreement (2) Hemorrhage Is this a current diagnosis for this admission?: Yes
--- NOTE | 2016-08-17 02:48 | Operative Report ---
Operative Report DATE OF SURGERY: 08/17/16 Operative Report: Pre-op diagnosis: Acute GI bleed Post-op diagnosis: 3-4 cm deep ulceration along the lesser curvature Surgery: Esophagogastroduodenoscopy with epinephrine injection and cauterization Medications: Versed 4mg Fentanyl 150mcg IV push Tissue removed: Antral biopsy for pathology Procedure: After informed consent obtained from patient, the throat was sprayed with Hurricane and conscious sedation was achieved. The upper endoscope was inserted into the esophagus under direct vision and advanced into the stomach. The duodenum was entered and examined to the second part. Endoscope was then slowly pulled out of the patient as the mucosa was examined into details. Patient tolerated procedure well. Findings Esophagus: Normal Antrum: Normal Body: There was a large, deep ulceration with a large fresh clot. There was no active bleeding while I was in the stomach but there was fresh blood in the stomach. The base of the ulcer was injected with epinephrine 1 in 10,000 and cauterization was attempted. It was difficult keeping the ulcer in the good position due to the location. Cauterization was not adequate Fundus: Normal Duodenum first part: Normal Duodenum second part: Normal Plan: Await pathology. Continue IV Protonix and consult surgery. Follow-up H&H every 4-6 hours OPERATION: .
[2016-08-17] MEDS ORDERED: PHYTONADIONE INJ 10 MG/1 ML AMPULE ONE (05:22)
[2016-08-17] MEDS ORDERED: THIAMINE HCL INJ 200 MG/2 ML VIAL ONE (05:40)
[2016-08-17] MEDS ORDERED: FOLIC ACID INJ 5 MG/1 ML 10 ML VIAL ONE (05:41)
[2016-08-17 06:12] LABS: ABSOLUTE BASOPHILS # (AUTO) 0.1 10^3/uL (0.0-0.2); ABSOLUTE EOSINOPHILS # (AUTO) 0.1 10^3/uL (0.0-0.6); ABSOLUTE LYMPHOCYTES (AUTO) 1.5 10^3/uL (0.5-4.7); ABSOLUTE MONOCYTES (AUTO) 0.9 10^3/uL (0.1-1.4); HEMATOCRIT 28.8 % (37.9-51.0); HEMOGLOBIN 9.6 g/dL (13.5-17.0); LYMPHOCYTES % (AUTO) 15.3 % (13-45); MEAN CORPUSCULAR HEMOGLOBIN 33.1 pg (27.0-33.4); MEAN CORPUSCULAR HGB CONC 33.4 g/dL (32.0-36.0); MEAN CORPUSCULAR VOLUME 99 fl (80-97); MONOCYTES % (AUTO) 9.7 % (3-13); RED BLOOD COUNT 2.91 10^6/uL (4.35-5.55); RED CELL DISTRIBUTION WIDTH 14.5 % (11.5-14.0); WHITE BLOOD COUNT 9.7 10^3/uL (4.0-10.5)
--- NOTE | 2016-08-17 06:16 | PDOC H&P ---
History of Present Illness Admission Date/PCP: 08/17/16 01:54 Patient complains of: Vomiting blood History of Present Illness: CHRISTOPHER OLIVARES is a 40 year old male with a past medical history of tobacco and alcohol dependence who over the last 48 hours has complained of epigastric pain and a single episode of hematemesis earlier in the day he was seen in the emergency room and discharged home given her normal hemoglobin only to return after significantly large volume of hematemesis. His hemoglobin dropped to 9.2 from 13.9 he is ordered 2 units of packed red blood cells and a stat GI consultation for endoscopy. He is referred to the hospitalist for admission patient denies previous episode he denies NSAID abuse. Past Medical History Neurological Medical History: Denies: Seizures Psychiatric Medical History: Reports: Alcohol Dependency, Tobacco Dependency Social History Lives with: Spouse/Significant other Smoking Status: Current Every Day Smoker Cigarettes Packs Per Day: 0.5 Frequency of Alcohol Use: Heavy Amount of Alcoholic Beverages Per Day: 24 beers per day Hx Recreational Drug Use: No Drugs: Marijuana Hx Prescription Drug Abuse: No - Advance Directive Resuscitation Status: Full Code Family History Family History: COPD, Hypertension Parental Family History Reviewed: Yes Children Family History Reviewed: Yes Sibling(s) Family History Reviewed.: Yes Medication/Allergy Home Medications: Ibuprofen [Motrin 600 Mg Tablet] 600 mg PO TID #12 tablet 06/24/16 Penicillin V Potassium [Penicillin Vk 500 mg Tablet] 500 mg PO BID #20 tablet Promethazine HCl [Phenergan 25 mg Tablet] 1 tab PO Q6H PRN #12 tablet 07/29/16 Ranitidine HCl [Zantac 150 mg Tablet] 150 mg PO BID #60 tablet 07/29/16 Metoclopramide HCl [Reglan 10 mg Tablet] 1 - 2 tab PO ASDIR PRN #25 tablet 08/16 Sucralfate [Carafate 1 gm Tablet] 1 gm PO ACHS #120 tablet 08/16/16 Allergies/Adverse Reactions: No Known Allergies Allergy (Verified 07/29/16 10:57) Review of Systems Constitutional: ABSENT: chills, fever(s), headache(s), weight gain, weight loss Eyes: ABSENT: visual disturbances Ears: ABSENT: hearing changes Cardiovascular: ABSENT: chest pain, dyspnea on exertion, edema, orthropnea, palpitations Respiratory: ABSENT: cough, hemoptysis Gastrointestinal: ABSENT: abdominal pain, constipation, diarrhea, hematemesis, hematochezia, nausea, vomiting Genitourinary: ABSENT: dysuria, hematuria Musculoskeletal: ABSENT: joint swelling Integumentary: ABSENT: rash, wounds Neurological: ABSENT: abnormal gait, abnormal speech, confusion, dizziness, focal weakness, syncope Psychiatric: ABSENT: anxiety, depression, homidical ideation, suicidal ideation Endocrine: ABSENT: cold intolerance, heat intolerance, polydipsia, polyuria Hematologic/Lymphatic: ABSENT: easy bleeding, easy bruising Physical Exam Vital Signs: Temp Pulse Resp BP Pulse Ox 98.4 F 78 15 103/65 99 08/17/16 03:53 08/17/16 03:53 08/17/16 06:00 08/17/16 05:36 08/17/16 06:00 Intake & Output 08/15/16 08/16/16 08/17/16 11:59 11:59 11:59 Intake Total 685 Output Total 325 Balance 360 Weight 66.8 kg General appearance: PRESENT: cooperative, mild distress Head exam: PRESENT: atraumatic, normocephalic Eye exam: PRESENT: conjunctiva pink, EOMI, PERRLA. ABSENT: scleral icterus Ear exam: PRESENT: normal external ear exam Mouth exam: PRESENT: moist, tongue midline Neck exam: ABSENT: carotid bruit, JVD, lymphadenopathy, thyromegaly Respiratory exam: PRESENT: clear to auscultation tee. ABSENT: rales, rhonchi, wheezes Cardiovascular exam: PRESENT: RRR. ABSENT: diastolic murmur, rubs, systolic murmur Pulses: PRESENT: normal dorsalis pedis pul Vascular exam: PRESENT: normal capillary refill GI/Abdominal exam: PRESENT: hyperactive bowel sounds, normal bowel sounds, soft , tenderness - Epigastric tenderness. ABSENT: distended, guarding, mass, organolmegaly, rebound Rectal exam: PRESENT: deferred Extremities exam: PRESENT: full ROM. ABSENT: calf tenderness, clubbing, pedal edema Neurological exam: PRESENT: alert, awake, oriented to person, oriented to place , oriented to time, oriented to situation, CN II-XII grossly intact. ABSENT: motor sensory deficit Psychiatric exam: PRESENT: appropriate affect, normal mood. ABSENT: homicidal ideation, suicidal ideation Skin exam: PRESENT: dry, intact, warm. ABSENT: cyanosis, rash Assessment & Plan - Diagnosis (1) Gastrointestinal hemorrhage with hematemesis Is this a current diagnosis for this admission?: YesPlan: Endoscopy, proton pump inhibitor, n.p.o. packed red blood cells serial CBCs (2) Peptic ulcer Is this a current diagnosis for this admission?: YesPlan: Endoscopy, n.p.o. IV Protonix follow-up CBC (3) Anemia Is this a current diagnosis for this admission?: YesPlan: Secondary to acute GI bleed, transfused packed red blood cells as needed hemoglobin greater than 8 or active bleeding (4) Alcohol dependence Is this a current diagnosis for this admission?: YesPlan: Thiamine and folate as needed Ativan supportive care (5) Tobacco dependence Is this a current diagnosis for this admission?: YesPlan: Tobacco Dependence patient received tobacco cessation counseling and offered nicotine replacement options - Time Time Spent: 50 to 70 Minutes - Inpatient Certification Medical Necessity: Need Close Monitoring Due to Risk of Patient Decompensation
[2016-08-17] MEDS: RINGERS SOLUTION,LACTATED 1,000 ML IV PRN ×2 (08:01→18:11)
[2016-08-17] MEDS: LORAZEPAM 1 MG TABLET PO SCH ×2 (09:15→21:19)
[2016-08-17] MEDS: NORMAL SALINE 100 ML with PANTOPRAZOLE SODIUM 80 MG IV PRN ×4 (10:00→18:12)
--- NOTE | 2016-08-17 11:41 | PDOC CONSULTATION ---
Consultation Consult Date: 08/17/16 Attending physician:: TWIN CONRAD Consult reason:: Upper GI bleed History of Present Illness Admission Date/PCP: 08/17/16 01:54 Patient complains of: Epigastric abdominal pain approximately 2 weeks duration History of Present Illness: 40-year-old -[place] male presented apparently to the emergency room last evening an episode of hematemesis. He did that he had one episode of vomiting large clots of blood and bright red blood. He had been nauseated prior to this event and has been having midepigastric abdominal pain for approximately 2 weeks. He denied a history of peptic ulcer disease but admits to drinking at least a case of beer per day for the last 30 years. He stated that his stools became black approximately 3 days ago. As taking any nonsteroidal anti-inflammatory agents or aspirin. He states he takes no medicine at home. Apparently prior to admission to the emergency room the patient felt as if he was going to pass out but did not have a syncopal event prior to admission. Apparently on admission last evening the patient was emergently taken to the endoscopy suite where he was found to have a bleeding gastric ulcer. The ulcer was injected with epinephrine but the cauterization of the ulcer crater at the site of bleeding appear to be suboptimal. We are consequently consulted for surgical evaluation. The patient states that he feels well he is denying abdominal pain at this time. Nursing states he has not had any vee red blood per rectum however he did have a melanotic stool previously. The patient states that he has not been nauseated. He has had no further episodes of hematemesis since admission. Past Medical History Neurological Medical History: Denies: Seizures Psychiatric Medical History: Reports: Alcohol Dependency, Tobacco Dependency Past Surgical History Past Surgical History: Reports: None Social History Lives with: Spouse/Significant other Smoking Status: Current Every Day Smoker Cigarettes Packs Per Day: 0.5 Frequency of Alcohol Use: Heavy Amount of Alcoholic Beverages Per Day: 1 case of beer per day for 30 years Last Alcohol Use: 08/15/16 Hx Recreational Drug Use: No Drugs: Marijuana Hx Prescription Drug Abuse: No - Advance Directive Resuscitation Status: Full Code Family History Family History: COPD, Hypertension Parental Family History Reviewed: Yes Children Family History Reviewed: No Sibling(s) Family History Reviewed.: No Medication/Allergy Home Medications: No Home Medications 08/17/16 Allergies/Adverse Reactions: No Known Allergies Allergy (Verified 07/29/16 10:57) Review of Systems Constitutional: PRESENT: anorexia Eyes: PRESENT: as per HPI Ears: PRESENT: as per HPI Nose, Mouth, and Throat: PRESENT: as per HPI Breasts: PRESENT: as per HPI Cardiovascular: ABSENT: chest pain, dyspnea on exertion, edema, orthropnea, palpitations Respiratory: ABSENT: cough, hemoptysis Gastrointestinal: PRESENT: abdominal pain - Left upper quadrant, coffee ground emesis, hematemesis, melena, nausea, vomiting Genitourinary: ABSENT: dysuria, hematuria Musculoskeletal: ABSENT: joint swelling Integumentary: ABSENT: rash, wounds Neurological: ABSENT: abnormal gait, abnormal speech, confusion, dizziness, focal weakness, syncope Psychiatric: ABSENT: anxiety, depression, homidical ideation, suicidal ideation Endocrine: ABSENT: cold intolerance, heat intolerance, polydipsia, polyuria Hematologic/Lymphatic: ABSENT: easy bleeding, easy bruising Physical Exam Vital Signs: Temp Pulse Resp BP Pulse Ox 98.8 F 74 14 106/76 100 08/17/16 11:02 08/17/16 11:02 08/17/16 11:02 08/17/16 11:02 08/17/16 11:02 Intake & Output 08/16/16 08/17/16 08/18/16 06:59 06:59 06:59 Intake Total 1307 400 Output Total 325 350 Balance 982 50 Weight 66.8 kg General appearance: PRESENT: no acute distress, cooperative, well-developed Head exam: PRESENT: atraumatic, normocephalic Eye exam: PRESENT: conjunctiva pink, EOMI, PERRLA. ABSENT: scleral icterus Ear exam: PRESENT: normal external ear exam Mouth exam: PRESENT: dry mucosa Neck exam: ABSENT: carotid bruit, JVD, lymphadenopathy, thyromegaly Respiratory exam: PRESENT: clear to auscultation tee. ABSENT: rales, rhonchi, wheezes Cardiovascular exam: PRESENT: RRR. ABSENT: diastolic murmur, rubs, systolic murmur Pulses: PRESENT: normal dorsalis pedis pul Vascular exam: PRESENT: normal capillary refill GI/Abdominal exam: PRESENT: hyperactive bowel sounds, tenderness - Upper quadrant no rebound noted. Rectal exam: PRESENT: deferred Extremities exam: PRESENT: full ROM. ABSENT: calf tenderness, clubbing, pedal edema Neurological exam: PRESENT: alert, awake, oriented to person, oriented to place , oriented to time, oriented to situation, CN II-XII grossly intact. ABSENT: motor sensory deficit Psychiatric exam: PRESENT: flat affect, normal mood. ABSENT: homicidal ideation , suicidal ideation Skin exam: PRESENT: dry, intact, warm. ABSENT: cyanosis, rash Results Laboratory Results: 08/17/16 05:58 08/17/16 05:58 WBC 9.7 RBC 2.91 L Hgb 9.6 L Hct 28.8 L MCV 99 H MCH 33.1 MCHC 33.4 RDW 14.5 H Plt Count 169 Seg Neutrophils % 73.0 Lymphocytes % 15.3 Monocytes % 9.7 Eosinophils % 1.0 Basophils % 1.0 Absolute Neutrophils 7.0 Absolute Lymphocytes 1.5 Absolute Monocytes 0.9 Absolute Eosinophils 0.1 Absolute Basophils 0.1 Assessment & Plan - Diagnosis (1) Acute blood loss anemia Is this a current diagnosis for this admission?: Yes (2) Gastritis Qualifiers: Gastritis type: unspecified gastritis Chronicity: chronic Gastritis bleeding: presence of bleeding unspecified Qualified Code(s): K29.50 - Unspecified chronic gastritis without bleeding (3) Gastrointestinal hemorrhage with hematemesis Is this a current diagnosis for this admission?: Yes (4) Peptic ulcer Is this a current diagnosis for this admission?: YesPlan: . Will continue with continuous infusion proton pump inhibitor. 2. Would add octreotide drip base of obvious alcoholism despite no mention of esophageal or gastric varices as etiology for the upper GI bleed 3. Would administer vitamin K 10 mg subcu daily 3 4. Would administer 1 additional unit of fresh frozen plasma now 5. Continue to monitor hemoglobin and hematocrit over the next 24 hours for any evidence of recurrence of upper GI bleed 6. If the patient had recurrence of the upper GI bleed would consider interventional radiology consult to control bleeding.
--- NOTE | 2016-08-17 12:00 | PDOC PROGRESS REPORT ---
Subjective Progress Note for:: 08/17/16 Subjective:: reason for visit: f/u acute blood loss anemia, PUD, ETOH abuse hospital course: per other's notes - "CHRISTOPHER OLIVARES is a 40 year old male with a past medical history of tobacco and alcohol dependence who over the last 48 hours has complained of epigastric pain and a single episode of hematemesis earlier in the day he was seen in the emergency room and discharged home given her normal hemoglobin only to return after significantly large volume of hematemesis. His hemoglobin dropped to 9.2 from 13.9 he is ordered 2 units of packed red blood cells and a stat GI consultation for endoscopy. He is referred to the hospitalist for admission patient denies previous episode he denies NSAID abuse. Endoscopy shows There was a large, deep ulceration with a large fresh clot. There was no active bleeding while I was in the stomach but there was fresh blood in the stomach. The base of the ulcer was injected with epinephrine 1 in 10,000 and cauterization was attempted. It was difficult keeping the ulcer in the good position due to the location. Cauterization was not adequate." he was admitted to the ICU on protonix gtt and per my discussion with surgeon he has started octreotide gtt. He is receiving thiamine, scheduled ativan and IVFs and has no hx of ETOH w/d or seizures but really hasn't tried to stop drinking before either. ROS: he denies chest and abdominal pain, n/v/d since his arrival. all systems reviewed, see above, remaining systems negative Physical Exam Vital Signs: Temp Pulse Resp BP Pulse Ox 98.8 F 64 14 106/76 100 08/17/16 11:02 08/17/16 11:44 08/17/16 11:44 08/17/16 11:44 08/17/16 11:44 Intake & Output 08/16/16 08/17/16 08/18/16 06:59 06:59 06:59 Intake Total 1307 400 Output Total 325 350 Balance 982 50 Weight 66.8 kg General appearance: PRESENT: no acute distress, thin, well-developed, well- nourished Head exam: PRESENT: atraumatic, normocephalic Eye exam: PRESENT: EOMI. ABSENT: conjunctival injection, scleral icterus Mouth exam: PRESENT: moist, neck supple Neck exam: PRESENT: full ROM. ABSENT: tenderness Respiratory exam: PRESENT: clear to auscultation tee. ABSENT: accessory muscle use, chest wall tenderness Cardiovascular exam: PRESENT: RRR. ABSENT: systolic murmur GI/Abdominal exam: PRESENT: normal bowel sounds, soft, tenderness - LUQ to deep palpation. ABSENT: organolmegaly Extremities exam: ABSENT: calf tenderness, pedal edema Musculoskeletal exam: PRESENT: ambulatory, full ROM Neurological exam: PRESENT: alert, awake, oriented to person, oriented to place , oriented to time Psychiatric exam: PRESENT: appropriate affect, normal mood Skin exam: PRESENT: warm. ABSENT: jaundice, pallor, petechiae, rash Results Laboratory Results: 08/17/16 05:58 08/17/16 05:58 WBC 9.7 RBC 2.91 L Hgb 9.6 L Hct 28.8 L MCV 99 H MCH 33.1 MCHC 33.4 RDW 14.5 H Plt Count 169 Seg Neutrophils % 73.0 Lymphocytes % 15.3 Monocytes % 9.7 Eosinophils % 1.0 Basophils % 1.0 Absolute Neutrophils 7.0 Absolute Lymphocytes 1.5 Absolute Monocytes 0.9 Absolute Eosinophils 0.1 Absolute Basophils 0.1 Assessment & Plan - Diagnosis (1) Gastrointestinal hemorrhage with hematemesis Is this a current diagnosis for this admission?: YesPlan: new; stable without evidence for continued bleeding. monitor CBC q6hrs and transfuse as needed. agree with octreotide and PPI gtts. keep NPO for now (2) Peptic ulcer Is this a current diagnosis for this admission?: YesPlan: stable; treat as above (3) Acute blood loss anemia Is this a current diagnosis for this admission?: YesPlan: new: monitor CBC as noted above (4) ETOH abuse Is this a current diagnosis for this admission?: YesPlan: stable; schedule ativan proactively as he is at grave risk for decompensatoin and withdrawal (5) Tobacco dependence Is this a current diagnosis for this admission?: YesPlan: nicotine replacement as his hemodynamics will allow trying to avoid hypertension - Time Time Spent with patient: 25-34 minutes
[2016-08-17 12:11] LABS: ABSOLUTE BASOPHILS # (AUTO) 0.1 10^3/uL (0.0-0.2); ABSOLUTE EOSINOPHILS # (AUTO) 0.3 10^3/uL (0.0-0.6); ABSOLUTE LYMPHOCYTES (AUTO) 1.7 10^3/uL (0.5-4.7); ABSOLUTE NEUT (AUTO) 6.4 10^3/uL (1.7-8.2); BASOPHILS % (AUTO) 1.2 % (0-2); EOSINOPHILS % (AUTO) 2.8 % (0-6); HEMATOCRIT 29.8 % (37.9-51.0); HEMOGLOBIN 10.2 g/dL (13.5-17.0); HGB HCT DIFFERENCE 0.8; LYMPHOCYTES % (AUTO) 18.1 % (13-45); MEAN CORPUSCULAR HGB CONC 34.1 g/dL (32.0-36.0); MEAN CORPUSCULAR VOLUME 97 fl (80-97); MONOCYTES % (AUTO) 10.7 % (3-13); RED BLOOD COUNT 3.09 10^6/uL (4.35-5.55); RED CELL DISTRIBUTION WIDTH 15.7 % (11.5-14.0); SEGMENTED NEUTROPHILS % (AUTO) 67.2 % (42-78); WHITE BLOOD COUNT 9.6 10^3/uL (4.0-10.5)
[2016-08-17] MEDS: NORMAL SALINE 500 ML with OCTREOTIDE ACETATE 500 MCG IV PRN ×4 (12:34→22:07)
[2016-08-17 18:01] LABS: ABSOLUTE BASOPHILS # (AUTO) 0.1 10^3/uL (0.0-0.2); ABSOLUTE EOSINOPHILS # (AUTO) 0.3 10^3/uL (0.0-0.6); ABSOLUTE LYMPHOCYTES (AUTO) 1.9 10^3/uL (0.5-4.7); ABSOLUTE MONOCYTES (AUTO) 0.8 10^3/uL (0.1-1.4); ABSOLUTE NEUT (AUTO) 4.4 10^3/uL (1.7-8.2); BASOPHILS % (AUTO) 1.3 % (0-2); EOSINOPHILS % (AUTO) 3.4 % (0-6); HEMATOCRIT 29.4 % (37.9-51.0); HGB HCT DIFFERENCE 0.6; LYMPHOCYTES % (AUTO) 25.2 % (13-45); MEAN CORPUSCULAR HEMOGLOBIN 33.1 pg (27.0-33.4); MEAN CORPUSCULAR HGB CONC 34.1 g/dL (32.0-36.0); MEAN CORPUSCULAR VOLUME 97 fl (80-97); MONOCYTES % (AUTO) 10.8 % (3-13); RED BLOOD COUNT 3.03 10^6/uL (4.35-5.55); RED CELL DISTRIBUTION WIDTH 15.6 % (11.5-14.0); SEGMENTED NEUTROPHILS % (AUTO) 59.3 % (42-78); WHITE BLOOD COUNT 7.4 10^3/uL (4.0-10.5)
[2016-08-18 00:17] LABS: ABSOLUTE EOSINOPHILS # (AUTO) 0.3 10^3/uL (0.0-0.6); ABSOLUTE MONOCYTES (AUTO) 0.7 10^3/uL (0.1-1.4); ABSOLUTE NEUT (AUTO) 3.4 10^3/uL (1.7-8.2); HEMATOCRIT 27.7 % (37.9-51.0); HEMOGLOBIN 9.4 g/dL (13.5-17.0); HGB HCT DIFFERENCE 0.5; LYMPHOCYTES % (AUTO) 31.5 % (13-45); MEAN CORPUSCULAR HEMOGLOBIN 32.6 pg (27.0-33.4); MEAN CORPUSCULAR HGB CONC 34.1 g/dL (32.0-36.0); MEAN CORPUSCULAR VOLUME 96 fl (80-97); MONOCYTES % (AUTO) 11.4 % (3-13); RED BLOOD COUNT 2.89 10^6/uL (4.35-5.55); SEGMENTED NEUTROPHILS % (AUTO) 52.1 % (42-78); WHITE BLOOD COUNT 6.4 10^3/uL (4.0-10.5)
[2016-08-18] MEDS: RINGERS SOLUTION,LACTATED 1,000 ML IV PRN (04:04)
[2016-08-18] MEDS: NORMAL SALINE 100 ML with PANTOPRAZOLE SODIUM 80 MG IV PRN ×2 (04:04)
[2016-08-18 04:33] LABS: ABSOLUTE BASOPHILS # (AUTO) 0.2 10^3/uL (0.0-0.2); ABSOLUTE EOSINOPHILS # (AUTO) 0.3 10^3/uL (0.0-0.6); ABSOLUTE LYMPHOCYTES (AUTO) 1.7 10^3/uL (0.5-4.7); ABSOLUTE MONOCYTES (AUTO) 0.7 10^3/uL (0.1-1.4); ABSOLUTE NEUT (AUTO) 3.1 10^3/uL (1.7-8.2); BASOPHILS % (AUTO) 2.8 % (0-2); EOSINOPHILS % (AUTO) 4.9 % (0-6); HEMATOCRIT 29.1 % (37.9-51.0); HEMOGLOBIN 9.9 g/dL (13.5-17.0); HGB HCT DIFFERENCE 0.6; LYMPHOCYTES % (AUTO) 28.1 % (13-45); MEAN CORPUSCULAR HEMOGLOBIN 32.7 pg (27.0-33.4); MEAN CORPUSCULAR HGB CONC 34.2 g/dL (32.0-36.0); MEAN CORPUSCULAR VOLUME 96 fl (80-97); MONOCYTES % (AUTO) 12.2 % (3-13); RED BLOOD COUNT 3.03 10^6/uL (4.35-5.55); RED CELL DISTRIBUTION WIDTH 15.4 % (11.5-14.0)
[2016-08-18 04:58] LABS: ANION GAP 5 (5-19); BLOOD UREA NITROGEN 13 mg/dL (7-20); CALCIUM 8.4 mg/dL (8.4-10.2); CARBON DIOXIDE 25 mmol/L (22-30); CHLORIDE 106 mmol/L (98-107); CREATININE RESULT 0.87 mg/dL (0.52-1.25); GLUCOSE 62 mg/dL (75-110); POTASSIUM 4.5 mmol/L (3.6-5.0); SODIUM 136.1 mmol/L (137-145)
[2016-08-18] MEDS ORDERED: THIAMINE HCL 100 MG in NORMAL SALINE 50 ML IV ONE (05:47)
[2016-08-18] MEDS ORDERED: DEXTROSE 5%-NORMAL SALINE 1,000 ML IV PRN ×3 (05:48→13:38)
[2016-08-18] MEDS ORDERED: THIAMINE HCL INJ 200 MG/2 ML VIAL ONE (06:12)
[2016-08-18] MEDS ORDERED: ONDANSETRON HCL INJ/PF 4 MG/2 ML SDV IV PRN (07:57)
[2016-08-18] MEDS: LORAZEPAM 1 MG TABLET PO SCH ×2 (09:40→22:07)
--- NOTE | 2016-08-18 10:41 | PDOC PROGRESS REPORT ---
Subjective Progress Note for:: 08/18/16 Subjective:: No complaints. No signs or symptoms of recurrent gastrointestinal bleed. Physical Exam Vital Signs: Temp Pulse Resp BP Pulse Ox 97.6 F 73 16 124/87 H 100 08/18/16 09:59 08/18/16 09:59 08/18/16 10:00 08/18/16 09:59 08/18/16 10:00 Intake & Output 08/17/16 08/18/16 08/19/16 06:59 06:59 06:59 Intake Total 1307 4008 600 Output Total 325 1600 300 Balance 982 2408 300 Weight 66.8 kg 69.9 kg General appearance: PRESENT: no acute distress, cooperative GI/Abdominal exam: PRESENT: other - Soft, Nondistended, nontender to palpation. Results Laboratory Results: 08/18/16 04:15 08/18/16 04:15 08/17/16 08/17/16 08/18/16 11:15 17:54 00:12 WBC 9.6 7.4 6.4 RBC 3.09 L 3.03 L 2.89 L Hgb 10.2 L 10.0 L 9.4 L Hct 29.8 L 29.4 L 27.7 L MCV 97 97 96 MCH 33.0 33.1 32.6 MCHC 34.1 34.1 34.1 RDW 15.7 H 15.6 H 15.0 H Plt Count 157 150 150 Seg Neutrophils % 67.2 59.3 52.1 Lymphocytes % 18.1 25.2 31.5 Monocytes % 10.7 10.8 11.4 Eosinophils % 2.8 3.4 5.0 Basophils % 1.2 1.3 0.0 Absolute Neutrophils 6.4 4.4 3.4 Absolute Lymphocytes 1.7 1.9 2.0 Absolute Monocytes 1.0 0.8 0.7 Absolute Eosinophils 0.3 0.3 0.3 Absolute Basophils 0.1 0.1 0.0 Sodium Potassium Chloride Carbon Dioxide Anion Gap BUN Creatinine Est GFR ( Amer) Est GFR (Non-Af Amer) Glucose Calcium 08/18/16 08/18/16 04:15 04:15 WBC 6.0 RBC 3.03 L Hgb 9.9 L Hct 29.1 L MCV 96 MCH 32.7 MCHC 34.2 RDW 15.4 H Plt Count 152 Seg Neutrophils % 52.0 Lymphocytes % 28.1 Monocytes % 12.2 Eosinophils % 4.9 Basophils % 2.8 H Absolute Neutrophils 3.1 Absolute Lymphocytes 1.7 Absolute Monocytes 0.7 Absolute Eosinophils 0.3 Absolute Basophils 0.2 Sodium 136.1 L Potassium 4.5 Chloride 106 Carbon Dioxide 25 Anion Gap 5 BUN 13 Creatinine 0.87 Est GFR ( Amer) > 60 Est GFR (Non-Af Amer) > 60 Glucose 62 L Calcium 8.4 Assessment & Plan - Diagnosis (1) Gastric ulcer Qualifiers: Gastric ulcer chronicity: unspecified ulcer chronicity Gastric ulcer complication status: with hemorrhage Qualified Code(s): K25.4 - Chronic or unspecified gastric ulcer with hemorrhage Is this a current diagnosis for this admission?: YesPlan: No evidence of bleeding. Continue proton pump inhibitor. Okay to transfer to the floor. He will need a repeat upper endoscopy in the near future with biopsies to exclude gastric cancer as the etiology. Once he is back on a diet will need to empirically treat him for H pylori as well.
--- NOTE | 2016-08-18 13:33 | PDOC PROGRESS REPORT ---
Subjective Progress Note for:: 08/18/16 Subjective:: reason for visit: f/u acute blood loss anemia, PUD, ETOH abuse hospital course: per other's notes - "CHRISTOPHER OLIVARES is a 40 year old male with a past medical history of tobacco and alcohol dependence who over the last 48 hours has complained of epigastric pain and a single episode of hematemesis earlier in the day he was seen in the emergency room and discharged home given her normal hemoglobin only to return after significantly large volume of hematemesis. His hemoglobin dropped to 9.2 from 13.9 he is ordered 2 units of packed red blood cells and a stat GI consultation for endoscopy. He is referred to the hospitalist for admission patient denies previous episode he denies NSAID abuse. Endoscopy shows There was a large, deep ulceration with a large fresh clot. There was no active bleeding while I was in the stomach but there was fresh blood in the stomach. The base of the ulcer was injected with epinephrine 1 in 10,000 and cauterization was attempted. It was difficult keeping the ulcer in the good position due to the location. Cauterization was not adequate." he was admitted to the ICU on protonix gtt and per my discussion with surgeon he has started octreotide gtt. He is receiving thiamine, scheduled ativan and IVFs and has no hx of ETOH w/d or seizures but really hasn't tried to stop drinking before either. he has shown no further evidence of bleeding and his H/ H has stabilized. ROS: he is hungry and would like to eat; denies chest and abdominal pain, n/v/ d since his arrival. all systems reviewed, see above, remaining systems negative Physical Exam Vital Signs: Temp Pulse Resp BP Pulse Ox 97.6 F 73 16 124/87 H 100 08/18/16 09:59 08/18/16 09:59 08/18/16 10:00 08/18/16 09:59 08/18/16 10:00 Intake & Output 08/17/16 08/18/16 08/19/16 06:59 06:59 06:59 Intake Total 1307 4008 600 Output Total 325 1600 1200 Balance 982 2408 -600 Weight 66.8 kg 69.9 kg General appearance: PRESENT: no acute distress, thin, well-developed, well- nourished Head exam: PRESENT: atraumatic, normocephalic Eye exam: PRESENT: EOMI. ABSENT: conjunctival injection, scleral icterus Mouth exam: PRESENT: moist, neck supple Neck exam: PRESENT: full ROM. ABSENT: tenderness Respiratory exam: PRESENT: clear to auscultation tee. ABSENT: accessory muscle use, chest wall tenderness Cardiovascular exam: PRESENT: RRR. ABSENT: systolic murmur GI/Abdominal exam: PRESENT: normal bowel sounds, soft, non tender Extremities exam: ABSENT: calf tenderness, pedal edema Musculoskeletal exam: PRESENT: ambulatory, full ROM Neurological exam: PRESENT: alert, awake, oriented to person, oriented to place , oriented to time Psychiatric exam: PRESENT: appropriate affect, normal mood Skin exam: PRESENT: warm. ABSENT: jaundice, pallor, petechiae, rash Results Laboratory Results: 08/18/16 04:15 08/18/16 04:15 08/17/16 08/18/16 08/18/16 17:54 00:12 04:15 WBC 7.4 6.4 RBC 3.03 L 2.89 L Hgb 10.0 L 9.4 L Hct 29.4 L 27.7 L MCV 97 96 MCH 33.1 32.6 MCHC 34.1 34.1 RDW 15.6 H 15.0 H Plt Count 150 150 Seg Neutrophils % 59.3 52.1 Lymphocytes % 25.2 31.5 Monocytes % 10.8 11.4 Eosinophils % 3.4 5.0 Basophils % 1.3 0.0 Absolute Neutrophils 4.4 3.4 Absolute Lymphocytes 1.9 2.0 Absolute Monocytes 0.8 0.7 Absolute Eosinophils 0.3 0.3 Absolute Basophils 0.1 0.0 Sodium 136.1 L Potassium 4.5 Chloride 106 Carbon Dioxide 25 Anion Gap 5 BUN 13 Creatinine 0.87 Est GFR ( Amer) > 60 Est GFR (Non-Af Amer) > 60 Glucose 62 L Calcium 8.4 08/18/16 04:15 WBC 6.0 RBC 3.03 L Hgb 9.9 L Hct 29.1 L MCV 96 MCH 32.7 MCHC 34.2 RDW 15.4 H Plt Count 152 Seg Neutrophils % 52.0 Lymphocytes % 28.1 Monocytes % 12.2 Eosinophils % 4.9 Basophils % 2.8 H Absolute Neutrophils 3.1 Absolute Lymphocytes 1.7 Absolute Monocytes 0.7 Absolute Eosinophils 0.3 Absolute Basophils 0.2 Sodium Potassium Chloride Carbon Dioxide Anion Gap BUN Creatinine Est GFR ( Amer) Est GFR (Non-Af Amer) Glucose Calcium Assessment & Plan - Diagnosis (1) Gastrointestinal hemorrhage with hematemesis Is this a current diagnosis for this admission?: YesPlan: new; stable without evidence for continued bleeding. monitor CBC and transfuse as needed. advance diet to full (2) Peptic ulcer Is this a current diagnosis for this admission?: YesPlan: stable, with adherent clot; d/c octreotide, treat as above (3) Acute blood loss anemia Is this a current diagnosis for this admission?: YesPlan: stable H/H; monitor CBC as noted above (4) ETOH abuse Is this a current diagnosis for this admission?: YesPlan: stable; continue ativan proactively as he is at grave risk for decompensation and withdrawal (5) Tobacco dependence Is this a current diagnosis for this admission?: Yes - Time Time Spent with patient: 25-34 minutes Medications reviewed and adjusted accordingly: Yes Anticipated discharge: Home Within: within 48 hours
[2016-08-18] MEDS ORDERED: NICOTINE 21 MG/24 HR PATCH.TD24 TD ONE (16:00)
[2016-08-18] MEDS: LANSOPRAZOLE 30 MG TAB.RAP.DR PO SCH (16:21)
[2016-08-19 07:11] LABS: ABSOLUTE BASOPHILS # (AUTO) 0.1 10^3/uL (0.0-0.2); ABSOLUTE EOSINOPHILS # (AUTO) 0.2 10^3/uL (0.0-0.6); ABSOLUTE LYMPHOCYTES (AUTO) 1.4 10^3/uL (0.5-4.7); ABSOLUTE NEUT (AUTO) 3.8 10^3/uL (1.7-8.2); BASOPHILS % (AUTO) 0.8 % (0-2); EOSINOPHILS % (AUTO) 3.1 % (0-6); HEMATOCRIT 28.4 % (37.9-51.0); HEMOGLOBIN 9.3 g/dL (13.5-17.0); HGB HCT DIFFERENCE -0.5; LYMPHOCYTES % (AUTO) 21.2 % (13-45); MEAN CORPUSCULAR HEMOGLOBIN 31.9 pg (27.0-33.4); MEAN CORPUSCULAR HGB CONC 32.6 g/dL (32.0-36.0); MEAN CORPUSCULAR VOLUME 98 fl (80-97); SEGMENTED NEUTROPHILS % (AUTO) 58.9 % (42-78); WHITE BLOOD COUNT 6.5 10^3/uL (4.0-10.5)
[2016-08-19 07:21] LABS: PROTHROMBIN TIME 13.2 SEC (11.4-15.4)
[2016-08-19 07:38] LABS: ALANINE AMINOTRANSFERASE 24 U/L (21-72); ALBUMIN 2.7 g/dL (3.5-5.0); ALKALINE PHOSPHATASE 45 U/L (38-126); ANION GAP 6 (5-19); ASPARTATE AMINO TRANSFERASE 16 U/L (17-59); BILIRUBIN,DIRECT 0.2 mg/dL (0.0-0.4); BILIRUBIN,TOTAL 0.2 mg/dL (0.2-1.3); BLOOD UREA NITROGEN 9 mg/dL (7-20); CALCIUM 8.5 mg/dL (8.4-10.2); CARBON DIOXIDE 28 mmol/L (22-30); CHLORIDE 104 mmol/L (98-107); CREATININE RESULT 0.82 mg/dL (0.52-1.25); GLUCOSE 88 mg/dL (75-110); POTASSIUM 4.1 mmol/L (3.6-5.0); SODIUM 137.9 mmol/L (137-145); TOTAL PROTEIN 5.1 g/dL (6.3-8.2)
[2016-08-19] MEDS: LANSOPRAZOLE 30 MG TAB.RAP.DR PO SCH (08:20)
[2016-08-19] MEDS: LORAZEPAM 1 MG TABLET PO SCH (09:28)
[2016-08-19] MEDS ORDERED: NICOTINE 21 MG/24 HR PATCH.TD24 TD SCH (10:00)
[2016-08-19 10:05] VITALS: BP 117/71
--- NOTE | 2016-08-19 15:55 | PDOC DISCHARGE SUMMARY ---
General - Admit/Disc Date/PCP Admission Date/Primary Care Provider: 08/17/16 01:54 Discharge Date: 08/19/16 - Discharge Diagnosis (1) Gastrointestinal hemorrhage with hematemesis Is this a current diagnosis for this admission?: YesSummary: stable with no further bleeding and tolerating diet without difficulty; H/H stable. ok to d/c home with ETOH avoidance, Prevpak for 2 wks and f/u with dr whitley in 2 wks. (2) Peptic ulcer Is this a current diagnosis for this admission?: YesSummary: stable; as above (3) Acute blood loss anemia Is this a current diagnosis for this admission?: YesSummary: stable as above. (4) ETOH abuse Is this a current diagnosis for this admission?: YesSummary: counseled regarding cessation , provided a 5d course of ativan to use ONLY if trying to stop and under monitoring of family; he was counseled regarding the dangers of using ativan with ETOH including resp collapse and . (5) Tobacco dependence Is this a current diagnosis for this admission?: YesSummary: cessation encourage, fell on deaf ears. - Additional Information Resuscitation Status: Full Code Discharge Diet: As Tolerated Discharge Activity: Activity As Tolerated, Balance Activity w/Rest, Energy Conservation Home Medications: Lansoprazole/Amoxiciln/Clarith [Prevpac Patient Pack] 1 each PO BID 14 Days Lorazepam [Ativan 1 mg Tablet] 1 mg PO Q12 #10 tablet 08/19/16 History of Present Illness Patient complains of: vomiting blood History of Present Illness: CHRISTOPHER OLIVARES is a 40 year old male with a past medical history of tobacco and alcohol dependence who over the last 48 hours has complained of epigastric pain and a single episode of hematemesis earlier in the day he was seen in the emergency room and discharged home given her normal hemoglobin only to return after significantly large volume of hematemesis. Hospital Course Hospital Course: "CHRISTOPHER OLIVARES is a 40 year old male His hemoglobin dropped to 9.2 from 13.9 he is ordered 2 units of packed red blood cells and a stat GI consultation for endoscopy. He is referred to the hospitalist for admission patient denies previous episode he denies NSAID abuse. Endoscopy shows There was a large, deep ulceration with a large fresh clot. There was no active bleeding while I was in the stomach but there was fresh blood in the stomach. The base of the ulcer was injected with epinephrine 1 in 10,000 and cauterization was attempted. It was difficult keeping the ulcer in the good position due to the location. Cauterization was not adequate." he was admitted to the ICU on protonix gtt and per my discussion with surgeon he has started octreotide gtt. He is receiving thiamine, scheduled ativan and IVFs and has no hx of ETOH w/d or seizures but really hasn't tried to stop drinking before either. he has shown no further evidence of bleeding and his H/ H has stabilized. he is tolerating a diet,hemodynamically stable, up ambulating in the room without symptoms and is ready for d/c home. neither he nor his mother express any concernsa bout going home at this time. Physical Exam Vital Signs: Temp Pulse Resp BP Pulse Ox 97.8 F 63 16 117/71 98 08/19/16 10:02 08/19/16 10:02 08/19/16 10:02 08/19/16 10:02 08/19/16 10:02 Intake & Output 08/18/16 08/19/16 08/20/16 06:59 06:59 06:59 Intake Total 4008 2123 Output Total 1600 1203 Balance 2408 920 Weight 69.9 kg 68.1 kg General appearance: PRESENT: no acute distress, thin, well-developed, well- nourished Head exam: PRESENT: atraumatic, normocephalic Eye exam: PRESENT: EOMI. ABSENT: conjunctival injection, scleral icterus Teeth exam: PRESENT: poor dentation Respiratory exam: PRESENT: clear to auscultation tee. ABSENT: accessory muscle use Cardiovascular exam: PRESENT: RRR GI/Abdominal exam: PRESENT: normal bowel sounds, soft Musculoskeletal exam: PRESENT: ambulatory, full ROM Neurological exam: PRESENT: alert, awake, oriented to person, oriented to place , oriented to time, oriented to situation Psychiatric exam: PRESENT: appropriate affect, normal mood Focused psych exam: ABSENT: pressured speech, psychomotor agitation Results Laboratory Results: 08/19/16 06:30 08/19/16 06:30 08/19/16 08/19/16 06:30 06:30 WBC 6.5 RBC 2.90 L Hgb 9.3 L Hct 28.4 L MCV 98 H MCH 31.9 MCHC 32.6 RDW 15.0 H Plt Count 172 Seg Neutrophils % 58.9 Lymphocytes % 21.2 Monocytes % 16.0 H Eosinophils % 3.1 Basophils % 0.8 Absolute Neutrophils 3.8 Absolute Lymphocytes 1.4 Absolute Monocytes 1.0 Absolute Eosinophils 0.2 Absolute Basophils 0.1 Sodium 137.9 Potassium 4.1 Chloride 104 Carbon Dioxide 28 Anion Gap 6 BUN 9 Creatinine 0.82 Est GFR ( Amer) > 60 Est GFR (Non-Af Amer) > 60 Glucose 88 Calcium 8.5 Total Bilirubin 0.2 AST 16 L ALT 24 Alkaline Phosphatase 45 Total Protein 5.1 L Albumin 2.7 L Qualifiers PATEINT BEING DISCHARGED WITH ANY OF THE FOLLOWING DIAGNOSIS?: No VTE patient discharged on overlapping Therapy?: No Reason(s) for not prescribing Overlap Therapy:: Not indicated Plan Discharge Plan: d/c home on prevpak , f/u with GI in 2 wks for repeat endoscopy; return to the ED for recurrent symptoms Time Spent: Greater than 30 Minutes
== END 2016-08-19 10:49 | disposition home or self-care (01) | DRG 378 ==
LOC: ER 23:54 → EH 08-17 01:54 → UNDOADMIN 08-17 02:12 → EH 08-17 02:12 → ICU 08-17 03:29 → 3W 08-18 10:54
PROVIDERS: ADMIT Internal Medicine; ATTEND Internal Medicine
PROC: 0W3P8ZZ Control Bleeding in Gastrointestinal Tract, Via Natural or Artificial Opening Endoscopic (ICD-10-PCS; principal; 2016-08-17 01:30)
PROC: 3E0G8GC Introduction of Other Therapeutic Substance into Upper GI, Via Natural or Artificial Opening Endoscopic (ICD-10-PCS; 2016-08-17 01:30)
PROC: 30233N1 Transfusion of Nonautologous Red Blood Cells into Peripheral Vein, Percutaneous Approach (ICD-10-PCS; 2016-08-17 01:30)
DX: K25.4 Chronic or unspecified gastric ulcer with hemorrhage (principal); D62 Acute posthemorrhagic anemia; F10.10 Alcohol abuse, uncomplicated; Z79.899 Other long term (current) drug therapy; F17.210 Nicotine dependence, cigarettes, uncomplicated
CPT/HCPCS: 36415; 36430; 43236; 43239; 43255; 80048; 80053; 85025; 85610; 86850; 86900; 86901; 86920; 88305; 88342; 96365; 96376; 99291; J0171; J1610; J2250; J2310; J2354; J3010; J3411; J3430; J3490; J7030; J7040; J7120; P9016; P9017; S0164

== ENCOUNTER 2016-10-07 23:56 | Emergency (ER) | payer SELFPAY ==
[2016-10-08] MEDS ORDERED: NORMAL SALINE 1000 ML 1,000 ML IV ONE ×2 (04:28→05:53)
[2016-10-08] MEDS ORDERED: METOCLOPRAMIDE HCL ORAL SOLN 10 MG/10 ML UDCUP PO ONE (04:28)
[2016-10-08] MEDS ORDERED: LIDOCAINE 2% VISCOUS SOLN 20 ML UDCUP PO ONE (04:28)
[2016-10-08] MEDS ORDERED: MAG HYDROX/AL HYDROX/SIMETH SUSP 30 ML UDCUP PO ONE (04:28)
[2016-10-08] MEDS ORDERED: SUCRALFATE SUSP 1 GM/10 ML UDCUP PO ONE (04:29)
--- NOTE | 2016-10-08 04:32 | ER Document Report ---
HPI - HPI Pain Level: 3 Notes: Patient is a 40-year-old male with a history of bleeding peptic ulcer disease who presents the ED complaining of left upper quadrant/epigastric pain 1-1/2 days. Patient states that he does take Zantac daily. He was admitted at the end of July or early August for a bleeding ulcer and had an endoscopy performed just prior to 23 August. Patient states that he did have a follow-up with GI 2 weeks ago and was doing well. Patient states that the pain does not radiate. He has not had any nausea, vomiting, diarrhea, melena, hematochezia. Patient has had a decreased appetite over the last day because of the pain. He denies any drug allergies. Patient states that he does smoke but he has not been drinking in the last couple months because of stomach pains. Denies any other illicit drug use. Denies any headache, fever, URI, sore throat, chest pain, palpitations, syncope, cough, shortness of breath, wheeze, dyspnea, nausea/ vomiting/diarrhea, urinary retention, dysuria, hematuria, or rash. - ROS Notes: REVIEW OF SYSTEMS: CONSTITUTIONAL : Denies fever, chills, or sweats. Denies recent illness. EENT: Denies eye, ear, throat, or mouth pain or symptoms. Denies nasal or sinus congestion or discharge. Denies throat, tongue, or mouth swelling or difficulty swallowing. CARDIOVASCULAR: Denies chest pain. Denies palpitations or racing or irregular heart beat. Denies ankle edema. RESPIRATORY: Denies cough, cold, or chest congestion. Denies shortness of breath, difficulty breathing, or wheezing. GASTROINTESTINAL: see hpi. + pain. Denies nausea, vomiting, or diarrhea. Denies blood in vomitus, stools, or per rectum. Denies black, tarry stools. Denies constipation. GENITOURINARY: Denies difficulty urinating, painful urination, burning, frequency, blood in urine, or discharge. MUSCULOSKELETAL: Denies back or neck pain or stiffness. Denies joint pain or swelling. SKIN: Denies rash, lesions or sores. NEUROLOGICAL: Denies confusion or altered mental status. Denies passing out or loss of consciousness. Denies dizziness or lightheadedness. Denies headache. Denies weakness or paralysis or loss of use of either side. Denies problems with gait or speech. Denies sensory loss, numbness, or tingling. ALL OTHER SYSTEMS REVIEWED AND NEGATIVE. Dictation was performed using [employer] voice recognition software - CARDIOVASCULAR Cardiovascular: DENIES: Chest pain - REPRODUCTIVE Reproductive: DENIES: : - DERM Skin Color: Normal, [place] Past Medical History - Social History Smoking Status: Unknown if Ever Smoked Family History: COPD, Hypertension Neurological Medical History: Denies: Hx Seizures Renal/ Medical History: Denies: Hx Peritoneal Dialysis GI Medical History: Reports: Hx Ulcer - stomach - Immunizations Immunizations up to date: Yes Hx Diphtheria, Pertussis, Tetanus Vaccination: Yes Vertical Provider Document - CONSTITUTIONAL Agree With Documented VS: Yes Notes: PHYSICAL EXAMINATION: GENERAL: Well-appearing, well-nourished and in no acute distress. NECK: Normal range of motion, supple without lymphadenopathy LUNGS: Breath sounds clear to auscultation bilaterally and equal. No wheezes rales or rhonchi. HEART: Regular rate and rhythm without murmurs, rubs, gallops. ABDOMEN: Soft, nondistended abdomen. no rebound. No masses appreciated. Normal bowel sounds present. No CVA tenderness bilaterally. + tenderness to the epigastrum with guarding. Musculoskeletal: FROM to passive/active. Strength 5+/5. Extremities: No cyanosis, clubbing, or edema b/l. Peripheral pulses 2+. Capillary refill less than 3 seconds. NEUROLOGICAL: Normal speech. Normal sensory, motor exams PSYCH: Normal mood, normal affect. SKIN: Warm, Dry, normal turgor, no rashes or lesions noted. - INFECTION CONTROL TRAVEL OUTSIDE OF THE [place] IN LAST 30 DAYS: No - RESPIRATORY O2 Sat by Pulse Oximetry: 100 Course - Re-evaluation Re-evalutation: 10/08/16 07:09 Patient is an afebrile, well-hydrated, 40-year-old male who presents the ED with epigastric pain, suspect gastritis versus ulcer based on H&P today. Vitals are stable. PE otherwise unremarkable at this time. CXR unremarkable. CBC, CMP were unremarkable for any acute pathology. 1L NS given today. GI cocktail provided today along with Carafate which did improve his symptoms. Patient is artery taking Zantac. I will send him home with zofran and carafate. Patient is to monitor symptoms very closely and to recheck with his PCM as soon as he is able in the next few days. Patient may also call his tree and shrub technician for another follow-up. Return to the ED with any worsening/ concerning symptoms otherwise as reviewed discharge. Patient is in agreement. Low suspicion/risk for acute appendicitis, bowel obstruction, acute cholecystitis, perforated diverticulitis, incarcerated hernia, pancreatitis, perforated ulcer, peritonitis, sepsis, testicular torsion, or other systemic emergent condition at this time. Patient is aware that his condition can change from initial presentation and he needs to monitor symptoms closely and seek medical attention if any acute changes. Reviewed case with Dr. Diego who is in agreement with discharge and plan. - Vital Signs Vital signs: Temp Pulse Resp BP Pulse Ox 98.4 F 89 20 124/80 100 10/08/16 00:23 10/08/16 00:23 10/08/16 03:56 10/08/16 00:23 10/08/16 00:23 - Laboratory Result Diagrams: 10/08/16 06:03 10/08/16 06:03 Discharge - Discharge Clinical Impression: Epigastric abdominal pain Gastritis Qualifiers: Gastritis type: unspecified gastritis Chronicity: acute Gastritis bleeding: without bleeding Qualified Code(s): K29.00 - Acute gastritis without bleeding Condition: Stable Disposition: HOME, SELF-CARE Instructions: Abdominal Pain ([facility]), Antinausea Medication ([facility]), Gastritis ([facility] ) Additional Instructions: Maintain adequate fluid and food intake Take home medications as directed including Zantac and Carafate May use Zofran as needed for nausea Monitor symptoms closely Recheck with your PCM in the next few days Call your tree and shrub technician to schedule a follow-up for next week Return to the ED with any worsening symptoms and/or development of fever, headache, dizziness, chest pain, palpitations, syncope, shortness of breath, trouble breathing, abdominal pain, n/v/d, blood in stool/urine/vomit, or other worsening symptoms that are concerning to you. Prescriptions: Ondansetron [Zofran Odt 4 mg Tablet] 1 - 2 tab PO Q4H PRN #15 tab.rapdis PRN Reason: For Nausea/Vomiting Sucralfate [Carafate] 1 gm PO QID PRN #420 ml PRN Reason: Referrals: RAY COLVIN MD [ACTIVE STAFF] - Follow up in 3-5 days ELOISE PEREZ MD [ACTIVE STAFF] - Follow up as needed
[2016-10-08 06:28] LABS: ABSOLUTE BASOPHILS # (AUTO) 0.1 10^3/uL (0.0-0.2); ABSOLUTE EOSINOPHILS # (AUTO) 0.2 10^3/uL (0.0-0.6); ABSOLUTE LYMPHOCYTES (AUTO) 1.4 10^3/uL (0.5-4.7); ABSOLUTE MONOCYTES (AUTO) 0.7 10^3/uL (0.1-1.4); ABSOLUTE NEUT (AUTO) 3.7 10^3/uL (1.7-8.2); BASOPHILS % (AUTO) 0.9 % (0-2); EOSINOPHILS % (AUTO) 3.4 % (0-6); HEMATOCRIT 35.9 % (37.9-51.0); HGB HCT DIFFERENCE 0.1; LYMPHOCYTES % (AUTO) 22.8 % (13-45); MEAN CORPUSCULAR HEMOGLOBIN 32.6 pg (27.0-33.4); MEAN CORPUSCULAR HGB CONC 33.5 g/dL (32.0-36.0); MEAN CORPUSCULAR VOLUME 97 fl (80-97); MONOCYTES % (AUTO) 12.1 % (3-13); RED CELL DISTRIBUTION WIDTH 14.8 % (11.5-14.0); SEGMENTED NEUTROPHILS % (AUTO) 60.8 % (42-78); WHITE BLOOD COUNT 6.2 10^3/uL (4.0-10.5)
[2016-10-08 06:42] LABS: ALANINE AMINOTRANSFERASE 22 U/L (21-72); ALBUMIN 3.5 g/dL (3.5-5.0); ALKALINE PHOSPHATASE 62 U/L (38-126); ANION GAP 7 (5-19); ASPARTATE AMINO TRANSFERASE 24 U/L (17-59); BILIRUBIN,DIRECT 0.3 mg/dL (0.0-0.4); BILIRUBIN,TOTAL 0.6 mg/dL (0.2-1.3); BLOOD UREA NITROGEN 12 mg/dL (7-20); CALCIUM 9.1 mg/dL (8.4-10.2); CARBON DIOXIDE 26 mmol/L (22-30); CHLORIDE 106 mmol/L (98-107); CREATININE RESULT 0.83 mg/dL (0.52-1.25); GLUCOSE 82 mg/dL (75-110); LIPASE 20.5 U/L (23-300); POTASSIUM 4.1 mmol/L (3.6-5.0); SODIUM 138.9 mmol/L (137-145); TOTAL PROTEIN 6.4 g/dL (6.3-8.2)
--- NOTE | 2016-10-08 07:08 | RADIOLOGY REPORT (SQ) ---
EXAM DESCRIPTION: CHEST PA/LAT COMPLETED DATE/TIME: 10/08/2016 6:59 am REASON FOR STUDY: epigastric pain, h/o ulcer COMPARISON: None. EXAM PARAMETERS: NUMBER OF VIEWS: two views TECHNIQUE: Digital Frontal and Lateral radiographic views of the chest acquired. RADIATION DOSE: NA LIMITATIONS: none FINDINGS: LUNGS AND PLEURA: No opacities, masses or pneumothorax. No pleural effusion. Mild hyperin flation. MEDIASTINUM AND HILAR STRUCTURES: No masses or contour abnormalities. HEART AND VASCULAR STRUCTURES: Heart normal size. No evidence for failure. BONES: Mild osteoarthritis of the right shoulder. HARDWARE: None in the chest. OTHER: No other significant finding. IMPRESSION: Mild hyperinflation. Otherwise, unremarkable. TECHNICAL DOCUMENTATION: JOB ID: [id number] [email or web address] Rights Reserved
[2016-10-08 08:18] VITALS: BP 101/77
== END 2016-10-08 08:13 | disposition home or self-care (01) ==
LOC: ER 23:56
DX: K29.00 Acute gastritis without bleeding (principal); R10.13 Epigastric pain; K27.9 Peptic ulcer, site unspecified, unspecified as acute or chronic, without hemorrhage or perforation
CPT/HCPCS: 99284; 96360; 36415; 83690; 85025; 80053; 71020; J3490; J7030

== ENCOUNTER 2016-10-09 00:29 | Emergency (ER) | payer SELFPAY ==
--- NOTE | 2016-10-09 01:14 | ER Document Report ---
ED General - General Chief Complaint: Suicidal Ideation Stated Complaint: SUICIDAL IDEATIONS Time Seen by Provider: 10/09/16 01:05 Notes: Patient is a 40-year-old male who presents with complaints of being suicidal. Patient says that he has had depression for a long time recently has become a or depressed and says he does not want to live anymore. He says he did try to walk from a car. He also started drinking again today. He also has done marijuana and cocaine. He says his only recent medical problems was a bleeding ulcer. He says he is supposed to be on medications for this. He says he occasionally takes Zantac. He has not taken anything else. He denies any recent vomiting blood. He continues to have some epigastric pain from it. No fevers. No other complaints at this time. Denies being on any psychiatric medications. TRAVEL OUTSIDE OF THE [place] IN LAST 30 DAYS: No - Related Data Allergies/Adverse Reactions: No Known Allergies Allergy (Verified 10/08/16 00:23) Past Medical History - Social History Smoking Status: Current Every Day Smoker Frequency of alcohol use: Occasional Drug Abuse: Cocaine, Marijuana Family History: COPD, Hypertension Patient has suicidal ideation: Yes Patient has homicidal ideation: Yes Neurological Medical History: Denies: Hx Seizures Renal/ Medical History: Denies: Hx Peritoneal Dialysis GI Medical History: Reports: Hx Ulcer - stomach - Immunizations Immunizations up to date: Yes Hx Diphtheria, Pertussis, Tetanus Vaccination: Yes Review of Systems - Review of Systems Notes: My Normal Review Basic REVIEW OF SYSTEMS: CONSTITUTIONAL : Denies fever, chills, or sweats. Denies recent illness. EENT: Denies eye, ear, throat, or mouth pain or symptoms. Denies nasal or sinus congestion. CARDIOVASCULAR: Denies chest pain. RESPIRATORY: Denies cough, cold, or chest congestion. Denies shortness of breath, difficulty breathing, or wheezing. GASTROINTESTINAL: Some epigastric abdominal pain. Denies nausea, vomiting, or diarrhea. Denies constipation. Last BM: MUSCULOSKELETAL: Denies neck or back pain or joint pain or swelling. SKIN: Denies rash or skin lesions. NEUROLOGICAL: Denies altered mental status or loss of consciousness. Denies headache. Denies weakness or paralysis or loss of use of either side. Denies problems with gait or speech. Denies sensory or motor loss. PSYCHIATRIC: Suicidal ideations. ALL OTHER SYSTEMS REVIEWED AND NEGATIVE. Physical Exam - Vital signs Vitals: Temp Pulse Resp BP Pulse Ox 97.9 F 69 18 129/89 H 99 10/09/16 00:41 10/09/16 00:41 10/09/16 00:41 10/09/16 00:41 10/09/16 00:41 - Notes Notes: General Appearance: Well nourished, alert, cooperative, no acute distress, no obvious discomfort. Vitals: reviewed, See vital signs table. Head: no swelling or tenderness to the head Eyes: PERRL, EOMI, Conjuctiva clear Mouth: No decreasd moisture Neck: Supple, no neck tenderness Lungs: No wheezing, No rales, No rhonci, No accessory muscle use, good air exchange bilaterally. Heart: Normal rate, Regular rythm, No murmur, no rub Abdomen: Normal BS, soft, No rigidity, some left-sided abdominal tenderness to palpation, No guarding, no rebound, no abdominal masses, no organomegaly Extremities: strength 5/5 in all extremities, good pulses in all extremities, no swelling or tenderness in the extremities, no edema. Skin: warm, dry, appropriate color, no rash Neuro: speech clear, oriented x 3, normal affect, responds appropriately to questions. Course - Re-evaluation Re-evalutation: 10/09/16 04:34 Patient is medically stable for psychiatric evaluation and placement. He does complain of some suicidal ideations. He is voluntary at this time and does want help. Dictation of this chart was performed using voice recognition software; therefore, there may be some unintended grammatical errors. - Vital Signs Vital signs: Temp Pulse Resp BP Pulse Ox 97.9 F 69 18 129/89 H 99 10/09/16 00:41 10/09/16 00:41 10/09/16 00:41 10/09/16 00:41 10/09/16 00:41 - Laboratory Result Diagrams: 10/09/16 01:31 10/09/16 01:31 Laboratory results interpreted by me: 10/09/16 10/09/16 01:31 01:31 RBC 3.81 L Hgb 12.4 L Hct 37.0 L RDW 14.9 H Lymphocytes % 12.7 L Salicylates < 1.0 L Acetaminophen < 10 L - EKG Interpretation by Me Additional EKG results interpreted by me: 10/09/16 02:17 EKG is reviewed and interpreted by me. EKG shows normal sinus rhythm with a rate of [address] segment elevation or depression. No ischemic T-wave inversions. DE interval, QRS duration, QTc intervals are within normal range. Old EKG available for comparison at this time. Discharge - Discharge Clinical Impression: Suicidal ideations Condition: Stable Disposition: PSYCH HOSP/UNIT
[2016-10-09] MEDS ORDERED: FAMOTIDINE 20 MG TABLET PO SCH ×2 (01:15→10:00)
[2016-10-09] MEDS ORDERED: FAMOTIDINE 20 MG TABLET PO ONE (01:30)
[2016-10-09 01:47] LABS: ABSOLUTE BASOPHILS # (AUTO) 0.1 10^3/uL (0.0-0.2); ABSOLUTE EOSINOPHILS # (AUTO) 0.2 10^3/uL (0.0-0.6); ABSOLUTE MONOCYTES (AUTO) 0.5 10^3/uL (0.1-1.4); ABSOLUTE NEUT (AUTO) 5.8 10^3/uL (1.7-8.2); APPEARANCE,URINE CLEAR; BASOPHILS % (AUTO) 1.2 % (0-2); BILIRUBIN,URINE NEGATIVE (NEGATIVE); EOSINOPHILS % (AUTO) 2.9 % (0-6); GLUCOSE, URINE NEGATIVE (NEGATIVE); HEMOGLOBIN 12.4 g/dL (13.5-17.0); HGB HCT DIFFERENCE 0.2; KETONES,URINE NEGATIVE (NEGATIVE); LEUKOCYTE ESTERASE,URINE NEGATIVE (NEGATIVE); LYMPHOCYTES % (AUTO) 12.7 % (13-45); MEAN CORPUSCULAR HEMOGLOBIN 32.5 pg (27.0-33.4); MEAN CORPUSCULAR HGB CONC 33.5 g/dL (32.0-36.0); MEAN CORPUSCULAR VOLUME 97 fl (80-97); MONOCYTES % (AUTO) 6.6 % (3-13); NITRITE,URINE NEGATIVE (NEGATIVE); PROTEIN,URINE NEGATIVE (NEGATIVE); RED BLOOD COUNT 3.81 10^6/uL (4.35-5.55); RED CELL DISTRIBUTION WIDTH 14.9 % (11.5-14.0); SEGMENTED NEUTROPHILS % (AUTO) 76.6 % (42-78); URINE SPECIFIC GRAVITY 1.005; UROBILINOGEN,URINE NEGATIVE mg/dL (<2.0); WHITE BLOOD COUNT 7.6 10^3/uL (4.0-10.5)
[2016-10-09 01:57] LABS: ALANINE AMINOTRANSFERASE 28 U/L (21-72); ALCOHOL 42 mg/dL (NONE DETECTED); ALKALINE PHOSPHATASE 71 U/L (38-126); ANION GAP 9 (5-19); ASPARTATE AMINO TRANSFERASE 24 U/L (17-59); BILIRUBIN,DIRECT 0.3 mg/dL (0.0-0.4); BILIRUBIN,TOTAL 0.3 mg/dL (0.2-1.3); BLOOD UREA NITROGEN 9 mg/dL (7-20); CALCIUM 9.3 mg/dL (8.4-10.2); CARBON DIOXIDE 28 mmol/L (22-30); CHLORIDE 103 mmol/L (98-107); CREATININE RESULT 0.85 mg/dL (0.52-1.25); GLUCOSE 90 mg/dL (75-110); POTASSIUM 4.4 mmol/L (3.6-5.0); SODIUM 139.6 mmol/L (137-145); TOTAL PROTEIN 7.1 g/dL (6.3-8.2)
[2016-10-09 02:00] LABS: URINE BARBITURATES SCREEN NEGATIVE; URINE METHADONE SCREEN NEGATIVE; URINE OPIATES LOW NEGATIVE; URINE PHENCYCLIDINE SCREEN NEGATIVE
--- NOTE | 2016-10-09 07:51 | EKG REPORT ---
SEVERITY:- NORMAL ECG - SINUS RHYTHM : Confirmed by: Merrick Arreola MD 09-Oct-2016 07:50:56
--- NOTE | 2016-10-09 09:33 | ER Document Report ---
Doctor's Note Notes: 10/09/16 09:32 As the rounding physician for our psychiatric patients, I have reviewed the chart, vitals, lab work. Patient has been examined and noted to be sleeping at this time, no complaints since his arrival. I am awaiting mental health in [facility].
--- NOTE | 2016-10-09 10:38 | ER Document Report ---
ED Psych Disorder / Suicide - General Information source: Patient, [facility] Records TRAVEL OUTSIDE OF THE [place] IN LAST 30 DAYS: No - HPI Patient complains to provider of: Suicidal ideation Onset: Just prior to arrival Onset was: Sudden Suicide Risk Factors: Depressed, Male Associated symptoms: Circumferential speech, Depressed Similar symptoms previously: No Recently seen / treated by doctor: Yes - 10/08 in the ER for GI related probs <SERVANDO HANSEN - Last Filed: 10/09/16 13:26> <OBED EDWARDS - Last Filed: 10/09/16 13:59> - General Chief Complaint: Suicidal Ideation Stated Complaint: SUICIDAL IDEATIONS Time Seen by Provider: 10/09/16 01:05 - HPI Notes: Patient is a 40 year old male who presents to [facility] ER for c/o suicidal ideations. Patient was held overnight voluntarily to [facility] with mental health. Note, a review of patient's record indicates no prior mg episodes here in the Department, and should be noted, patient presented 10/08 with c/o GI pain with no reports of SI/Depression. Upon arrival this episode, patient's toxicology was positive for Benzos, Cocaine, and BAL in 40s. Patient this morning states he has periods where he would rather be . Attempted to discuss his current stressors, none of which patient would identify specifically, and instead says he is going through a lot. Patient does eventually acknowledge he has no stable/ consistent living environment. Patient states finances are a stressor and when asked how he pays for his drugs, he states, " I can side hustle." Patient continued to indirectly answer questions. Patient states he did not mention his depression during his most recent episode, but was depressed and suicidal. Patient states he just feels he would be better off . Mother, Wilfrido Benítez : Called x3, no answer. Patient is A&O. Mood is depressed, per patient with odd affect. Patient endorses suicidal ideations, but denies means or intent. Patient denies A/V H; delusions not noted. Thought processes were guarded. Conversational speech was low and pressured. At times his speech was inaudible. Attention and focus were poor. Insight, judgment, and impulse control were poor. Unspecified Cocaine Use Disorder Unspecified Alcohol Use Disorder Patient is psychiatrically cleared for discharge. Patient is recommended to follow up [place] morning as a walk in at [facility] for assessment for substance abuse and possible services. Patient's overall presentation is more consistent with attempting to meet his basic needs through the misuse of the emergency medical and psychiatric services. Example, patient no providing specific answers and avoiding answering all questions. Patient has no prior episodes here in the Department for psychiatric related complaints, and should be noted was seen the day prior with no psychiatric complaints. Patient is encouraged to pursue substance abuse services, which in [place] are largely a voluntary process. Patient was provided resources, to include outpatient providers, mobile crisis, and homeless shelters. I consulted with Dr. Blue in regards to the care and management of this patient. (SERVANDO HANSEN) - Related Data Allergies/Adverse Reactions: No Known Allergies Allergy (Verified 10/08/16 00:23) Past Medical History - General Information source: Patient, Relative - attempted numerous times to contact mother, [facility] Records - Social History Smoking Status: Current Every Day Smoker Chew tobacco use (# tins/day): Yes Frequency of alcohol use: Occasional Drug Abuse: Cocaine, Marijuana Family History: COPD, Hypertension Patient has suicidal ideation: Yes - pt reports these are chronic Patient has homicidal ideation: No Neurological Medical History: Denies: Hx Seizures Renal/ Medical History: Denies: Hx Peritoneal Dialysis GI Medical History: Reports: Hx Gastroesophageal Reflux Disease, Hx Ulcer - stomach - Immunizations Immunizations up to date: Yes Hx Diphtheria, Pertussis, Tetanus Vaccination: Yes <SERVANDO HANSEN - Last Filed: 10/09/16 13:26> - Vital signs Vitals: Temp Pulse Resp BP Pulse Ox 97.9 F 69 18 129/89 H 99 10/09/16 00:41 10/09/16 00:41 10/09/16 00:41 10/09/16 00:41 10/09/16 00:41 Course - Laboratory Result Diagrams: 10/09/16 01:31 10/09/16 01:31 <SERVANDO HANSEN - Last Filed: 10/09/16 13:26> - Laboratory Result Diagrams: 10/09/16 01:31 10/09/16 01:31 <OBED EDWARDS - Last Filed: 10/09/16 13:59> - Re-evaluation Re-evalutation: 10/09/16 13:58 Patient has been evaluated, I agree with mental health evaluation that he is not actually suicidal at this time and has secondary gains. He will be discharged with close return precautions and resources After performing a Medical Screening Examination, I estimate there is LOW risk for any life threatening mental health issues. At this time the patient looks extremely well and has not attempted severe self harm. I have reevaluated this patient multiple times and no significant life threatening changes are noted. The patient and I have discussed the diagnosis and risks, and we agree with discharging home with close follow-up with the understanding that symptoms and presentations can change. We also discussed returning to the Emergency Department immediately if new or worsening symptoms occur. We have discussed the symptoms which are most concerning (hallucinations, thoughts or actions of self harm or harm to others) that necessitate immediate return. (OBED EDWARDS) - Vital Signs Vital signs: Temp Pulse Resp BP Pulse Ox 98.4 F 60 12 116/68 100 10/09/16 10:55 10/09/16 10:55 10/09/16 10:55 10/09/16 10:55 10/09/16 10:55 - Laboratory Laboratory results interpreted by me: 10/09/16 10/09/16 01:31 01:31 RBC 3.81 L Hgb 12.4 L Hct 37.0 L RDW 14.9 H Lymphocytes % 12.7 L Salicylates < 1.0 L Acetaminophen < 10 L Discharge <SERVANDO HANSEN - Last Filed: 10/09/16 13:26> <OBED EDWARDS - Last Filed: 10/09/16 13:59> - Discharge Clinical Impression: Suicidal ideations, Cocaine abuse, Alcohol abuse, Marijuana abuse Condition: Stable Disposition: HOME, SELF-CARE Additional Instructions: Acute Alcohol Intoxication Your evaluation revealed very high levels of alcohol. You can from drinking a large amount of alcohol rapidly! Further, there's the risk of falls , traffic accidents, and fights. A high portion (about 50 percent) of the serious injuries seen in hospital emergency rooms are caused by alcohol. Alcohol overdosage is usually due to an underlying emotional or psychiatric problem. You may benefit from counselling. If "binge" drinking is an ongoing problem for you, or if you drink ANY AMOUNT of alcohol EVERY day, you most likely have a tendency to alcoholism. You should avoid alcohol totally. We can refer you for treatment. Persons with alcohol problems are often also prone to other addictions -- you should discuss any use of medications or drugs with the doctor. You should be watched at home for the next several hours by someone who has not been drinking. Get extra fluids for the next 24 hours. Call the doctor if there is repeated vomiting, increasing headache, decreasing level of alertness, or any other worsening. Cocaine Abuse Cocaine causes many dangerous medical problems. Problems can occur even with "usual" amounts. Cocaine affects judgement, creating a sense of invulnerability. Cocaine users often make bad decisions that seem "great" at the time. Most cocaine users eventually will be hurt by bad job performance, damaged personal relations, crime, and unsafe sexual practices. Toxic effects of cocaine can include seizures, hallucinations, delusions, high blood pressure, heart damage, or sudden . There's always the risk of a "bad batch." But heart attacks, brain hemorrhages, or cardiac arrest can occur unpredictably even with "normal" use. Injection of cocaine is risky for abscesses, endocarditis (heart infection) , pneumonia, and AIDS. Withdrawal from cocaine often causes anxiety and drug cravings. Some users become paranoid and psychotic. Many treatment programs are available, but you must make the decision to quit. Medication can be prescribed to control the symptoms of cocaine toxicity (beta blockers or benzodiazepines). Withdrawal symptoms may require tranquilizers. Please follow up with [facility] for assessment and possible services. You have been provided numerous resources to include homeless shelters, outpatient providers, etc. It is has been recommended you pursue substance abuse services. Please return if your symptoms worsen. Referrals: [facility] [Provider Group] - 10/10/16 (Please walk in Monday morning for assessment to detmermine services)
[2016-10-09 14:10] VITALS: BP 109/89
== END 2016-10-09 14:10 | disposition home or self-care (01) ==
LOC: ER 00:29
DX: R45.851 Suicidal ideations (principal); F10.10 Alcohol abuse, uncomplicated; F12.10 Cannabis abuse, uncomplicated; F14.10 Cocaine abuse, uncomplicated
CPT/HCPCS: 36415; 80053; 80307; 81001; 85025; 93005; 93010; 99285

== ENCOUNTER 2017-07-06 07:50 | Emergency (ER) | payer SELFPAY ==
[2017-07-06] MEDS ORDERED: ONDANSETRON HCL INJ/PF 4 MG/2 ML SDV IV ONE (08:17)
[2017-07-06] MEDS ORDERED: FAMOTIDINE INJ/PF 20 MG/2 ML SDV IV ONE (08:17)
--- NOTE | 2017-07-06 08:24 | ER Document Report ---
ED GI/ - General Chief Complaint: Abdominal Pain Stated Complaint: ABDOMINAL PAIN Time Seen by Provider: 07/06/17 08:03 Notes: Patient is here complaining of pain in the left upper quadrant for the past couple of days. Pain is sharp and constant and just under the left anterior rib cage. He has had some nausea and vomited a "little bit". He has had diarrhea, as well. Last bowel movement was yesterday. Patient has had similar pain to this and was admitted to this hospital about 1 year ago for upper GI bleeding secondary to an ulcer. Patient says he is not currently on any medications for an ulcer. Also acknowledges that he continues to drink occasional beers, the most recent being about a week ago. Has never had any abdominal surgeries. Not running any fevers. Denies chest pain, shortness of breath, UTI symptoms or blood in urine. PMH: Patient is on no medications. History of depression and schizoaffective disorder. TRAVEL OUTSIDE OF THE [place] IN LAST 30 DAYS: No - Related Data Allergies/Adverse Reactions: No Known Allergies Allergy (Verified 07/06/17 07:52) Past Medical History - Social History Smoking Status: Current Every Day Smoker Frequency of alcohol use: Occasional Family History: Reviewed & Not Pertinent, COPD, Hypertension - Past Medical History Cardiac Medical History: Denies: Hx Coronary Artery Disease GI Medical History: Reports: Hx Gastroesophageal Reflux Disease, Hx Ulcer - stomach, admitted to [facility] in July,, gastrointestinal bleeding, ulcer Psychiatric Medical History: Reports: Hx Depression, Hx Schizoaffective Disorder - On no medications Surgical Hx: Negative Past Surgical History: Reports: None - Immunizations Immunizations up to date: Yes Hx Diphtheria, Pertussis, Tetanus Vaccination: Yes Review of Systems - Review of Systems Notes: REVIEW OF SYSTEMS: CONSTITUTIONAL : Denies fever. EENT: Denies eye, ear, nose or mouth or throat pain or other symptoms. CARDIOVASCULAR: Denies chest pain. RESPIRATORY: Denies cough, chest congestion, or shortness of breath. GASTROINTESTINAL: See HPI. GENITOURINARY: Denies difficulty or painful urinating, urinary frequency, blood in urine. MUSCULOSKELETAL: Denies back or neck pain. Denies joint pain or swelling. SKIN: Denies rash or skin lesions. NEUROLOGICAL: Denies LOC or altered mental status. Denies headache. Denies sensory loss or motor deficits. ALL OTHER SYSTEMS REVIEWED AND NEGATIVE. Physical Exam - Vital signs Vitals: Temp Pulse Resp BP Pulse Ox 97.7 F 80 18 135/84 H 97 07/06/17 07:53 07/06/17 07:53 07/06/17 07:53 07/06/17 07:53 07/06/17 07:53 Interpretation: Normal - Notes Notes: PHYSICAL EXAMINATION: GENERAL: Well-appearing, in no acute distress. Vital signs are all normal. HEAD: Atraumatic, normocephalic. EYES: Pupils equal round and reactive to light, extraocular movements intact. ENT: oropharynx clear without exudates. Moist mucous membranes. NECK: Normal range of motion, supple. LUNGS: Breath sounds clear and equal bilaterally. HEART: Regular rate and rhythm without murmurs. ABDOMEN: Tender to palpate the left upper quadrant of the abdomen. No tenderness on the right side, in particular, in the right lower quadrant at McBurney's point. There is definitely no no guarding or rebound. No masses. Bowel sounds are present. BACK: No tenderness throughout entire back. EXTREMITIES: Normal range of motion without pain. NEUROLOGICAL: Normal speech, normal gait. Normal sensory, motor, and reflex exams. Awake, alert, and oriented x3. Cranial nerves normal. PSYCH: Normal mood, normal affect. SKIN: Warm, dry, no rashes. Course - Re-evaluation Re-evalutation: 07/06/17 08:26 IV line was established. Patient is getting Pepcid and Zofran IV 07/06/17 10:24 Lab studies are all normal. X-ray shows gas and stool throughout the entire colon, ascending, transverse, and descending. No evidence of obstruction. - Vital Signs Vital signs: Temp Pulse Resp BP Pulse Ox 97.7 F 80 18 135/84 H 97 07/06/17 07:53 07/06/17 07:53 07/06/17 07:53 07/06/17 07:53 07/06/17 07:53 - Laboratory Result Diagrams: 07/06/17 08:05 07/06/17 08:05 Laboratory results interpreted by me: 07/06/17 07/06/17 08:05 08:05 MCH 33.6 H RDW 14.4 H Glucose 123 H Discharge - Discharge Clinical Impression: Abdominal pain, Constipation Condition: Stable Disposition: HOME, SELF-CARE Additional Instructions: ABDOMINAL PAIN: There are many causes of abdominal pain. Pain can mean a serious problem requiring surgery (such as appendicitis). It can also be an innocent problem that goes away on its own (such as a viral infection). Often, time must pass to determine the cause of pain. The physician does not feel that hospitalization is necessary, at present. Things may change within the next 24 hours. Call the doctor or come back for re- examination if any problems occur, such as: (1) Pain that becomes more severe, steady, or becomes concentrated in one specific area. Also, pain that is more severe with movement or coughing. (2) Vomiting that persists or becomes more frequent. (3) Blood in the vomitus, urine, or bowel movements. Blood in the stool may have a tarry or black appearance. (4) Shaking chills or fever greater than 100 degrees F. (5) The abdomen becomes more distended or swollen. (6) Bowel movements cease. (7) Failure to improve as expected. NORMAL EXAM AND WORKUP: At this time, your examination and workup show no significant abnormality. No significant abnormal physical findings are noted. All laboratory, EKG, and imaging (x-ray, CT scans, ultrasound) studies that were ordered show no significant abnormality. Although your examination and all studies that were ordered showed no significant abnormal finding, there are no examinations and no studies that are 100% accurate. There is always the possibility that some abnormality could exist and not be detected with physical examination or within the limits and capabilities of laboratory and other studies. You should return or follow up as you were instructed on your visit today for further evaluation if your symptoms do not resolve. CONSTIPATION: Constipation is a common problem. It is especially likely as you get older. Constipation is a common cause of abdominal pain, but sometimes causes no symptoms at all. Causes of constipation include certain medications, dehydration, diets, inactivity, and low-fiber intake. Rarely, it can be a symptom of underlying disease. The physician has evaluated you for this. Avoid constipation by eating a diet high in fiber, fruits, and vegetables. Drink plenty of liquids. Get regular exercise. If possible, avoid constipating medicines like narcotic pain medication. Some vitamin tablets can cause constipation. Stool softeners may be needed for difficult cases. An excellent stool softener is Konsyl which is available at [employer], [employer]. Just add a teaspoon to a glass of pineapple or orange juice daily or twice a day if needed. Laxatives are useful for occasional constipation. You should use them only when necessary. Too-frequent use can make your bowels dependent on them. Some over the counter laxatives available without prescription are: Milk of Magnesia, 1-2 tablespoons twice a day Dulcolax, 5 mg pill or 10 mg suppository. Citrate of Magnesia, 4-5 ounces a day for a day or two For acute constipation, Fleet's Enemas and Dulcolax suppositories are helpful. Chronic, correction use of laxatives or enemas is not a good idea. Your bowel may become dependant on them. You do not need to have a bowel movement every day. Many people do fine with a bowel movement every three or four days. You should call your doctor or return for re-evaluation if you pass blood in the stool, or if you develop fever or increasing abdominal pain. BULK LAXATIVES: Bulk laxatives make the stool softer and bulkier. They're useful for preventing constipation. You can choose between psyllium, methylcellulose, and polycarbophil. They are available without a prescription. Psyllium brand names include Konsyl, Metamucil, Perdiem, Effer-Syllium and Hydrocil. It's available as powder, flavored drink powder, or chewable. The usual dose of psyllium powder is one heaping teaspoon in water each morning, increasing to twice a day if needed. Angelina juice can disguise the slightly grainy texture. Methylcellulose is marketed as Citrucel and other brands. The average dose is two grams in a cup of water one to three times a day. Polycarbophil is marketed as Fiber-Con. Take two tablets with a cup of water one to three times a day. LAXATIVE: A laxative agent has been prescribed for your condition. This should result in passage of stool within 12 hours. Some mild intestinal cramping is common as the hard stool begins to move. You may have loose or runny stools for a short time. Contact your doctor if there is severe cramping, vomiting, or passage of blood. Return for further care if this medicine fails to improve your condition. FOLLOW-UP CARE: If you have been referred to a physician for follow-up care, call the physician s office for an appointment as you were instructed or within the next two days. If you experience worsening or a significant change in your symptoms, notify the physician immediately or return to the Emergency Department at any time for re-evaluation.
[2017-07-06 08:31] LABS: ABSOLUTE BASOPHILS # (AUTO) 0.1 10^3/uL (0.0-0.2); ABSOLUTE EOSINOPHILS # (AUTO) 0.2 10^3/uL (0.0-0.6); ABSOLUTE LYMPHOCYTES (AUTO) 2.1 10^3/uL (0.5-4.7); ABSOLUTE MONOCYTES (AUTO) 0.7 10^3/uL (0.1-1.4); ABSOLUTE NEUT (AUTO) 3.1 10^3/uL (1.7-8.2); BASOPHILS % (AUTO) 1.4 % (0-2); HEMATOCRIT 41.9 % (37.9-51.0); HEMOGLOBIN 14.6 g/dL (13.5-17.0); LYMPHOCYTES % (AUTO) 33.4 % (13-45); MEAN CORPUSCULAR HEMOGLOBIN 33.6 pg (27.0-33.4); MEAN CORPUSCULAR VOLUME 96 fl (80-97); MONOCYTES % (AUTO) 11.4 % (3-13); PLATELET COUNT 227 10^3/uL (150-450); RED BLOOD COUNT 4.36 10^6/uL (4.35-5.55); RED CELL DISTRIBUTION WIDTH 14.4 % (11.5-14.0); SEGMENTED NEUTROPHILS % (AUTO) 49.8 % (42-78); TOTAL CELLS COUNTED % (AUTO) 100 %; WHITE BLOOD COUNT 6.2 10^3/uL (4.0-10.5)
[2017-07-06 08:41] LABS: APPEARANCE,URINE CLEAR; BILIRUBIN,URINE NEGATIVE (NEGATIVE); COLOR,URINE STRAW; GLUCOSE, URINE NEGATIVE (NEGATIVE); KETONES,URINE NEGATIVE (NEGATIVE); LEUKOCYTE ESTERASE,URINE NEGATIVE (NEGATIVE); NITRITE,URINE NEGATIVE (NEGATIVE); PROTEIN,URINE NEGATIVE (NEGATIVE); URINE SPECIFIC GRAVITY 1.008; UROBILINOGEN,URINE NEGATIVE mg/dL (<2.0)
[2017-07-06 08:53] LABS: ALANINE AMINOTRANSFERASE 34 U/L (21-72); ALBUMIN 4.3 g/dL (3.5-5.0); ALKALINE PHOSPHATASE 68 U/L (38-126); ANION GAP 13 (5-19); ASPARTATE AMINO TRANSFERASE 40 U/L (17-59); BILIRUBIN,DIRECT 0.3 mg/dL (0.0-0.4); BILIRUBIN,TOTAL 0.3 mg/dL (0.2-1.3); BLOOD UREA NITROGEN 14 mg/dL (7-20); CALCIUM 10.1 mg/dL (8.4-10.2); CARBON DIOXIDE 27 mmol/L (22-30); CHLORIDE 103 mmol/L (98-107); GLUCOSE 123 mg/dL (75-110); LIPASE 52.7 U/L (23-300); POTASSIUM 4.4 mmol/L (3.6-5.0); SODIUM 143.4 mmol/L (137-145); TOTAL PROTEIN 7.6 g/dL (6.3-8.2)
[2017-07-06 08:54] LABS: ALCOHOL < 10 mg/dL (NONE DETECTED)
--- NOTE | 2017-07-06 09:01 | RADIOLOGY REPORT (SQ) ---
EXAM DESCRIPTION: ABDOMEN 2 VIEWS COMPLETED DATE/TIME: 07/06/2017 8:43 am REASON FOR STUDY: LUQ pain, Hx ulcer COMPARISON: None. NUMBER OF VIEWS: Two views. TECHNIQUE: Supine and erect/decubitus radiographic images of the abdomen acquired. LIMITATIONS: None. FINDINGS: FREE AIR: None. No abnormal gas collections. LUNG BASES: Clear. BOWEL GAS PATTERN: Nonobstructive pattern. A prominent air-fluid level is identified in the stomach on the erect film. CALCIFICATIONS: No suspicious calcifications. SOFT TISSUES: No gross mass or suggestion of organomegaly. HARDWARE: None in the abdomen. BONES: No acute fracture. No worrisome bone lesions. OTHER: No other significant finding. IMPRESSION: NO RADIOGRAPHIC EVIDENCE FOR ACUTE ABDOMINAL DISEASE. TECHNICAL DOCUMENTATION: JOB ID: [id number] [employer]- All Rights Reserved Reading location - IP/workstation name: [email or web address]
[2017-07-06 10:37] VITALS: BP 110/76
== END 2017-07-06 10:37 | disposition home or self-care (01) ==
LOC: ER 07:50
DX: K59.00 Constipation, unspecified (principal); R10.12 Left upper quadrant pain; R11.2 Nausea with vomiting, unspecified; R19.7 Diarrhea, unspecified; F17.200 Nicotine dependence, unspecified, uncomplicated; Z87.19 Personal history of other diseases of the digestive system; Z87.11 Personal history of peptic ulcer disease
CPT/HCPCS: 99284; 96374; 96375; 36415; 80307; 83690; 85025; 80053; 81001; 74019; J2405; S0028

== ENCOUNTER 2017-09-05 08:06 | Emergency (ER) | payer SELFPAY ==
--- NOTE | 2017-09-05 08:35 | ER Document Report ---
ED Psych Disorder / Suicide <KATIE INGRAM - Last Filed: 09/05/17 11:08> <WINSTON NIEVES - Last Filed: 09/05/17 11:22> - General Mode of Arrival: Ambulatory Information source: Patient TRAVEL OUTSIDE OF THE U.S. IN LAST 30 DAYS: No <LIZZETTE SMITH - Last Filed: 09/05/17 12:37> - General Chief Complaint: Suicidal Ideation Stated Complaint: PSYCH EVAULATION Time Seen by Provider: 09/05/17 08:24 Notes: 41 year old male that presents to the emergency department today with complaints of suicidal ideation. Patient was here for similar complaints in September of 2016. Patient states he has been suicidal for a couple of days. When asked how he would commit suicide he said "whatever goes through my head" but denies having any specific plan. Patient admits to being a 1 pack per day smoker and smoking marijuana but denies any other drug usage. Patient states has been taking his Invega as prescribed. (LIZZETTE SMITH) - Related Data Allergies/Adverse Reactions: No Known Allergies Allergy (Verified 09/05/17 09:07) Past Medical History - General Information source: Patient - Social History Smoking Status: Current Every Day Smoker Cigarette use (# per day): Yes Frequency of alcohol use: Occasional Drug Abuse: Cocaine, Marijuana Lives with: Family Family History: Reviewed & Not Pertinent, COPD, Hypertension GI Medical History: Reports: Hx Gastroesophageal Reflux Disease, Hx Ulcer - stomach, admitted to [facility] in July,, gastrointestinal bleeding, ulcer Psychiatric Medical History: Reports: Hx Depression, Hx Schizoaffective Disorder - On no medications Surgical Hx: Negative - Immunizations Immunizations up to date: Yes Hx Diphtheria, Pertussis, Tetanus Vaccination: Yes <LIZZETTE SMITH - Last Filed: 09/05/17 12:37> Review of Systems - Review of Systems Constitutional: No symptoms reported EENT: No symptoms reported Cardiovascular: No symptoms reported Respiratory: No symptoms reported Gastrointestinal: No symptoms reported Genitourinary: No symptoms reported Male Genitourinary: No symptoms reported Musculoskeletal: No symptoms reported Skin: No symptoms reported Hematologic/Lymphatic: No symptoms reported Neurological/Psychological: See HPI, Suicidal ideation -: Yes All other systems reviewed and negative <LIZZETTE SMITH - Last Filed: 09/05/17 12:37> Physical Exam <KATIE INGRAM - Last Filed: 09/05/17 11:08> <WINSTON NIEVES - Last Filed: 09/05/17 11:22> <LIZZETTE SMITH - Last Filed: 09/05/17 12:37> - Vital signs Vitals: Temp Pulse Resp BP Pulse Ox 98.1 F 83 18 142/89 H 97 09/05/17 08:13 09/05/17 08:13 09/05/17 08:13 09/05/17 08:13 09/05/17 08:13 - Notes Notes: Physical Exam: General: Alert, appears well. HEENT: Normocephalic. Atraumatic. PERRLA. Extraocular movements intact. Oropharynx clear. Neck: Supple. Cardiovascular: Regular rate and rhythm. Respiratory: No respiratory distress. Clear and equal breath sounds bilaterally. Abdominal: Normal Inspection. No distension. Extremities: Moves all four extremities. Neurological: Normal cognition. AAOx4. Normal speech. Psychological: Flat affect. Skin: Warm. Dry. Normal color. (LIZZETTE SMITH) Course - Laboratory Result Diagrams: 09/05/17 08:30 09/05/17 08:30 <KATIE INGRAM - Last Filed: 09/05/17 11:08> - Laboratory Result Diagrams: 09/05/17 08:30 09/05/17 08:30 - EKG Interpretation by Nm EKG shows normal: Sinus rhythm, Mobile, Intervals, QRS Complexes, ST-T Waves Rate: Normal - 76 Rhythm: NSR <WINSTON NIEVES - Last Filed: 09/05/17 11:22> - Laboratory Result Diagrams: 09/05/17 08:30 09/05/17 08:30 <LIZZETTE SMITH - Last Filed: 09/05/17 12:37> - Re-evaluation Re-evalutation: 09/05/17 11:21 Patient stated his last cocaine use was last year and last methamphetamine was a month ago. His urine drug screen is positive for cocaine today. We also learned that he recently was discharged from a psychiatric unit in [place]. ( WINSTON NIEVES) - Vital Signs Vital signs: Temp Pulse Resp BP Pulse Ox 98.0 F 75 16 138/85 H 100 09/05/17 11:28 09/05/17 11:28 09/05/17 11:28 09/05/17 11:28 09/05/17 11:28 - Laboratory Laboratory results interpreted by me: 09/05/17 09/05/17 08:30 08:30 RBC 4.08 L RDW 14.7 H Seg Neutrophils % 36.0 L Lymphocytes % 48.1 H Salicylates < 1.0 L Acetaminophen < 10 L Discharge <KATIE INGRAM - Last Filed: 09/05/17 11:08> <WINSTON NIEVES - Last Filed: 09/05/17 11:22> <LIZZETTE SMITH - Last Filed: 09/05/17 12:37> - Discharge Clinical Impression: Suicidal ideations, Cocaine abuse, Cannabis abuse, Alcohol abuse Condition: Stable Disposition: HOME, SELF-CARE Additional Instructions: CHRONIC ALCOHOLISM and ALCOHOL ABUSE: Your evaluation reveals evidence of chronic alcoholism, an addiction to alcohol. The tendency to alcoholism may be inherited. Chronic use of alcohol weakens muscles, causes fatty deposits in the liver , damages the stomach, makes you more prone to infections, and can cause defects in unborn children. In the long run, brain atrophy and cirrhosis of the liver result. You are also at greater risk for certain types of cancer, such as cancer of the mouth, throat, stomach, and liver. Counselling services are available to help you. In-hospital treatment programs often help. Support groups such as Alcoholics Anonymous can be very useful in beating this addiction. Your physician can make a referral for you. As alcoholics often are prone to other addictions, you should discuss your use of any other medications with the doctor. COCAINE ABUSE: Cocaine causes many dangerous medical problems. Problems can occur even with "usual" amounts. Cocaine affects judgement, creating a sense of invulnerability. Cocaine users often make bad decisions that seem "great" at the time. Most cocaine users eventually will be hurt by bad job performance, damaged personal relations, crime, and unsafe sexual practices. Toxic effects of cocaine can include seizures, hallucinations, delusions, high blood pressure, heart damage, or sudden . There's always the risk of a "bad batch." But heart attacks, brain hemorrhages, or cardiac arrest can occur unpredictably even with "normal" use. Injection of cocaine is risky for abscesses, endocarditis (heart infection) , pneumonia, and AIDS. Withdrawal from cocaine often causes anxiety and drug cravings. Some users become paranoid and psychotic. Many treatment programs are available, but you must make the decision to quit. Medication can be prescribed to control the symptoms of cocaine toxicity (beta blockers or benzodiazepines). Withdrawal symptoms may require tranquilizers. DEPRESSION: Your evaluation reveals that you have mental depression. While symptoms may be vague, they often include disturbance of sleep, fatigue, loss of appetite , and general loss of interest in life. While depression may be a side effect of drugs, or a reaction to a major change in your life, many cases have no known cause. If depression is acute, and related to a major loss in your life, you can expect it to clear completely with time. If you have been depressed a long time , are prone to repeated bouts of depression or low mood, or have been thinking of suicide, get help. Depression can be treated with anti-depressant medication and counselling. Long-term depression will often take a few weeks to clear, even with appropriate medication. Follow-up care is important. SUICIDAL IDEATION: Suicidal ideation is a common medical term for thoughts about suicide, which may be as detailed as a formulated plan, without the suicidal act itself. Although most people who undergo suicidal ideation do not commit suicide, some go on to make suicide attempts. The range of suicidal ideation varies greatly from fleeting to detailed planning, role playing, and unsuccessful attempts. While thoughts about suicide are common, most people do not carry out serious actions to commit suicide. Based upon your evaluation and discussion with you, we do not believe you are currently at risk to act upon your thoughts of suicide. You have agreed to return to the Emergency Department, at any time , if you feel inclined to act upon your suicidal thoughts. FOLLOW-UP CARE: Is recommended that you do not do drugs. You are recommended to follow-up with [facility] services at your previously scheduled appointment on September 28, 2017 with [facility]. If you experience worsening or a significant change in your symptoms, notify the physician immediately or return to the Emergency Department at any time for re-evaluation. Referrals: [facility] Crisis Team [Outside] - Follow up as needed [facility][1] Human Services [Provider Group] - 09/28/17 (Please go to [facility] in [place], [facility]. ) Scribe Attestation: 09/05/17 09:23 I personally performed the services described in the documentation, reviewed and edited the documentation which was dictated to the scribe in my presence, and it accurately records my words and actions. (WINSTON NIEVES) Scribe Documentation - Scribe Written by Zuleikae:: Madi Byrnes, 09/05/2017 1237 acting as scribe for :: Diamond <LIZZETTE SMITH - Last Filed: 09/05/17 12:37>
[2017-09-05 08:48] LABS: ABSOLUTE EOSINOPHILS # (AUTO) 0.1 10^3/uL (0.0-0.6); ABSOLUTE LYMPHOCYTES (AUTO) 2.6 10^3/uL (0.5-4.7); ABSOLUTE MONOCYTES (AUTO) 0.7 10^3/uL (0.1-1.4); ABSOLUTE NEUT (AUTO) 1.9 10^3/uL (1.7-8.2); BASOPHILS % (AUTO) 0.6 % (0-2); EOSINOPHILS % (AUTO) 2.6 % (0-6); HEMATOCRIT 39.4 % (37.9-51.0); HEMOGLOBIN 13.6 g/dL (13.5-17.0); LYMPHOCYTES % (AUTO) 48.1 % (13-45); MEAN CORPUSCULAR HEMOGLOBIN 33.3 pg (27.0-33.4); MEAN CORPUSCULAR HGB CONC 34.5 g/dL (32.0-36.0); MEAN CORPUSCULAR VOLUME 97 fl (80-97); MONOCYTES % (AUTO) 12.7 % (3-13); PLATELET COUNT 224 10^3/uL (150-450); RED BLOOD COUNT 4.08 10^6/uL (4.35-5.55); RED CELL DISTRIBUTION WIDTH 14.7 % (11.5-14.0); TOTAL CELLS COUNTED % (AUTO) 100 %; WHITE BLOOD COUNT 5.4 10^3/uL (4.0-10.5)
[2017-09-05 09:06] LABS: ALANINE AMINOTRANSFERASE 29 U/L (21-72); ALBUMIN 3.9 g/dL (3.5-5.0); ALCOHOL 32 mg/dL (NONE DETECTED); ALKALINE PHOSPHATASE 91 U/L (38-126); ANION GAP 12 (5-19); ASPARTATE AMINO TRANSFERASE 33 U/L (17-59); BILIRUBIN,DIRECT 0.2 mg/dL (0.0-0.4); BILIRUBIN,TOTAL 0.5 mg/dL (0.2-1.3); BLOOD UREA NITROGEN 13 mg/dL (7-20); CALCIUM 8.9 mg/dL (8.4-10.2); CARBON DIOXIDE 24 mmol/L (22-30); CHLORIDE 106 mmol/L (98-107); GLUCOSE 82 mg/dL (75-110); POTASSIUM 3.9 mmol/L (3.6-5.0); SODIUM 141.9 mmol/L (137-145); TOTAL PROTEIN 7.3 g/dL (6.3-8.2)
[2017-09-05 09:07] LABS: ACETAMINOPHEN < 10 ug/mL (10-30); SALICYLATE < 1.0 mg/dL (2.0-20.0)
[2017-09-05 09:33] LABS: APPEARANCE,URINE CLEAR; BILIRUBIN,URINE NEGATIVE (NEGATIVE); COLOR,URINE YELLOW; GLUCOSE, URINE NEGATIVE (NEGATIVE); KETONES,URINE NEGATIVE (NEGATIVE); LEUKOCYTE ESTERASE,URINE NEGATIVE (NEGATIVE); NITRITE,URINE NEGATIVE (NEGATIVE); PROTEIN,URINE NEGATIVE (NEGATIVE); URINE SPECIFIC GRAVITY 1.018; UROBILINOGEN,URINE NEGATIVE mg/dL (<2.0)
[2017-09-05 10:00] LABS: URINE AMPHETAMINES SCREEN NEGATIVE; URINE BARBITURATES SCREEN NEGATIVE; URINE BENZODIAZEPINES SCREEN NEGATIVE; URINE COCAINE SCREEN UNCONFIRMED POSITIVE; URINE MARIJUANA (THC) SCREEN UNCONFIRMED POSITIVE; URINE METHADONE SCREEN NEGATIVE; URINE PHENCYCLIDINE SCREEN NEGATIVE
--- NOTE | 2017-09-05 10:03 | EKG REPORT ---
SEVERITY:- NORMAL ECG - SINUS RHYTHM : Confirmed by: Keira Haro 05-Sep-2017 10:03:09
--- NOTE | 2017-09-05 11:07 | PSYCHOLOGICAL NOTE ---
Psych Note - Psych Note Psych Note: Reason for consult: Suicidal ideation Consent permissions: None given Collateral: [facility] of [place], [place] PT presents to ED with complaints of thoughts of wanting to harm himself. Breaths even and unlabored, pt ambulatory. Pt voluntarily brought self into ED at this time. Patient disclosed that he arrived to [facility] ED by walking. He states that he came here because he was "hearing voices" for the last couple days. He states that he heard them earlier and that it occurs every "now and then." He continued to identify that he hears the voices inside his head. He identifies hearing the inside of his head and originally says he hears them in his right ear but quickly changed his response and stated left ear. He reports that he hears different voices however he "sometimes" recognizes them. Patient disclosed that he has outpatient mental health provider through [facility] and that he saw them last Monday. He reports that he receives an Shay shot but then stated that he received that shot "a couple days before Monday." He reports that he receives his prescriptions from [facility] in [place] that he is currently here visiting a friend. He confirms he has a place to stay. When asked about suicidal ideation he states that is "passing thoughts" and the last time he had those thoughts was "earlier today." When asked about substance abuse he confirmed use of marijuana and denies any other use. Clinician notes upon ending the evaluation patient asked which hospital he would be sent to. When it was explained to the patient that we could probably stabilize him here in the emergency department he stated "I think I be better going inpatient." He reports that he just got [facility] "cou[facility] ago[facility]. It is explained to the patient that if he was just released from inpatient psychiatric treatment that he needed to follow-up with outpatient therapy to build on his coping skills. Behavioral Health Team contacted [facility]. Patient goes to [facility] in [place], [place]. His last appointment was 08/29/2017. He was given Invega Sustenna 156mg monthly. He has a follow up appointment 09/28/2017. He was released from [facility] 08/28/2017. He was in [facility] in late March. Patient is alert and orientated to person, place, time and circumstance. Mood is euthymic with congruent affect. Patient reports auditory hallucinations that appear to be connected to the patient's cocaine use. Delusions are absent and behaviors congruent with an intact reality based presentation i.e. organized and linear thought processes. Patient thought content appears to be focused on going inpatient; he reports just being released a "couple weeks ago" from inpatient psychiatric treatment with [facility]. Eye contact is poor. Conversational speech is slow and halting. Intellectual abilities appear to be low average range. Attention and concentration are fair. Insight, judgment, impulse control appears to be fair. No medication recommendations at this time Diagnosis 291.9 (F10.99) unspecified alcohol related disorder 292.9 (F12.99) unspecified cannabis related disorder 292.9 (1 4.99) unspecified stimulant related disorder; cocaine Impression\\plan: Patient is cleared from acute psychiatric services. Patient does not meet IVC criteria per [place] GS 122C. Patient describes passing thoughts of suicidal ideation to clinician and provided vague suicidal plan of multiple ideas to [facility] staff. Clinician notes patient discloses a mental health diagnosis of schizoaffective and depression; however, patient's report of auditory hallucinations appears to be directly correlated with patient's substance misuse. Patient did not disclose his cocaine use, stating that he has only used marijuana; however, toxicology screening indicates the patient had marijuana, cocaine, and alcohol in his system. Effective evaluation and diagnoses cannot be conducted when patient is under the influence and when outpatient providers are not informed of substance abuse. It is recommended the patient obtain sobriety to effectively determine his diagnosis. Patient disclosed he is attempting to go inpatient psychiatric treatment and he was just discharged from [facility] 8 days ago. It would not be appropriate for the patient to go inpatient again as the patient needs therapeutic intervention for his substance abuse and any possible mental health; this would be through outpatient. A referral form has been sent to the patient's outpatient provider to ensure appropriate interventions i.e. substance abuse treatment. Dr. Blue was consulted and the care and management this patient; attending physician is in agreement with recommendations and disposition.
[2017-09-05 11:29] VITALS: BP 138/85
== END 2017-09-05 11:29 | disposition home or self-care (01) ==
LOC: ER 08:06
DX: R45.851 Suicidal ideations (principal); F14.10 Cocaine abuse, uncomplicated; F10.10 Alcohol abuse, uncomplicated; F12.10 Cannabis abuse, uncomplicated; F17.210 Nicotine dependence, cigarettes, uncomplicated
CPT/HCPCS: 36415; 80053; 80307; 81001; 85025; 93005; 93010; 99285

== ENCOUNTER 2018-04-17 10:34 | Emergency (ER) | payer SELFPAY ==
[2018-04-17 10:48] VITALS: BP 138/81
[2018-04-17] MEDS ORDERED: DICYCLOMINE HCL INJ 20 MG/2 ML AMPULE IM ONE (11:03)
--- NOTE | 2018-04-17 11:05 | ER Document Report ---
ED GI/ - General Information source: Patient TRAVEL OUTSIDE OF THE U.S. IN LAST 30 DAYS: No <MODESTO CUELLAR - Last Filed: 04/17/18 11:03> <MARY JANE OSORIO - Last Filed: 04/17/18 14:11> - General Chief Complaint: Abdominal Pain Stated Complaint: ABDOMINAL PAIN Time Seen by Provider: 04/17/18 11:01 Notes: Chief complaint: abdominal pain: History of complain:( obtained from----patient) 42 years old male presents today with left lower quadrant abdominal pain for the last 2-3 days. Constant pain. Nonradiating. Not associated with any nausea vomiting diarrhea or constipation. Not exacerbated by any change of position. No fever chills dysuria frequency urgency. Onset: Gradual Duration: 3 days Severity: Moderate Quality: Crampy Context: Unknown Exacerbating factor and relieving factors: None REVIEW OF SYSTEMS: CONSTITUTIONAL : Denies fever, chills, or sweats. Denies recent illness. EENT: Denies eye, ear, throat, or mouth pain or symptoms. Denies nasal or sinus congestion or discharge. Denies throat, tongue, or mouth swelling or difficulty swallowing. CARDIOVASCULAR: Denies chest pain. Denies palpitations or racing or irregular heart beat. Denies ankle edema. RESPIRATORY: Denies cough, cold, or chest congestion. Denies shortness of breath, difficulty breathing, or wheezing. GASTROINTESTINAL: Denies distention. Denies nausea, vomiting, or diarrhea. Denies blood in vomitus, stools, or per rectum. Denies black, tarry stools. Denies constipation. GENITOURINARY: Denies difficulty urinating, painful urination, burning, frequency, blood in urine, or discharge. FEMALE GENITOURINARY: Denies vaginal bleeding, heavy or abnormal periods, irregular periods. Denies vaginal discharge or odor. MUSCULOSKELETAL: Denies back or neck pain or stiffness. Denies joint pain or swelling. SKIN: Denies rash, lesions or sores. HEMATOLOGIC : Denies easy bruising or bleeding. LYMPHATIC: Denies swollen, enlarged glands. NEUROLOGICAL: Denies confusion or altered mental status. Denies passing out or loss of consciousness. Denies dizziness or lightheadedness. Denies headache. Denies weakness or paralysis or loss of use of either side. Denies problems with gait or speech. Denies sensory loss, numbness, or tingling. Denies seizures. PSYCHIATRIC: Denies anxiety or stress. Denies depression, suicidal ideation, or homicidal ideation. ALL OTHER SYSTEMS REVIEWED AND NEGATIVE. PHYSICAL EXAMINATION: GENERAL: Well-appearing, well-nourished and seems to be in any acute pain HEAD: Atraumatic, normocephalic. EYES: Pupils equal round and reactive to light, extraocular movements intact, conjunctiva are normal. ENT: Nares patent, oropharynx clear without exudates. Moist mucous membranes. NECK: Normal range of motion, supple without lymphadenopathy LUNGS: Breath sounds clear to auscultation bilaterally and equal. No wheezes rales or rhonchi. HEART: Regular rate and rhythm without murmurs ABDOMEN: Soft, mild tenderness over the left lower quadrant, nondistended abdomen. No guarding, no rebound. No masses appreciated. Female : deferred Musculoskeletal: Normal range of motion, no pitting or edema. No cyanosis. SKIN: Warm, Dry, normal turgor, no rashes or lesions noted. Dictation was performed using [employer] voice recognition software (MODESTO CUELLAR) - [facility] Notes: 04/17/18 11:05 Dictated (MODESTO UCELLAR) - Related Data Allergies/Adverse Reactions: No Known Allergies Allergy (Verified 09/05/17 09:07) Past Medical History - Social History Smoking Status: Current Every Day Smoker Chew tobacco use (# tins/day): No Frequency of alcohol use: Rare Drug Abuse: None Family History: Reviewed & Not Pertinent, COPD, Hypertension Patient has suicidal ideation: No Patient has homicidal ideation: No - Past Medical History Cardiac Medical History: Denies: Hx Coronary Artery Disease Neurological Medical History: Denies: Hx Seizures Renal/ Medical History: Denies: Hx Peritoneal Dialysis GI Medical History: Reports: Hx Gastroesophageal Reflux Disease, Hx Ulcer - stomach, admitted to [facility] in July,, gastrointestinal bleeding, ulcer Psychiatric Medical History: Reports: Hx Depression, Hx Schizoaffective Disorder - On no medications - Immunizations Immunizations up to date: Yes Hx Diphtheria, Pertussis, Tetanus Vaccination: Yes <MODESTO CUELLAR - Last Filed: 04/17/18 11:03> Review of Systems <MODESTO CUELLAR - Last Filed: 04/17/18 11:03> - Review of Systems Notes: Dictated (MODESTO CUELLAR) Physical Exam <MODESTO CUELLAR - Last Filed: 04/17/18 11:03> - Vital signs Vitals: Temp Pulse Resp BP Pulse Ox 98.6 F 74 14 138/81 H 100 04/17/18 10:47 04/17/18 10:47 04/17/18 10:47 04/17/18 10:47 04/17/18 10:47 - Notes Notes: Dictated (MODESTO CUELLAR) Course - Laboratory Result Diagrams: 04/17/18 11:00 04/17/18 11:00 <MARY JANE OSORIO - Last Filed: 04/17/18 14:11> - Vital Signs Vital signs: Temp Pulse Resp BP Pulse Ox 98.6 F 74 14 138/81 H 100 04/17/18 10:47 04/17/18 10:47 04/17/18 10:47 04/17/18 10:47 04/17/18 10:47 - Laboratory Laboratory results interpreted by me: 04/17/18 11:00 BUN 6 L Discharge <MODESTO CUELLAR - Last Filed: 04/17/18 11:03> <MARY JANE OSORIO - Last Filed: 04/17/18 14:11> - Discharge Clinical Impression: Abdominal pain Qualifiers: Abdominal location: epigastric Qualified Code(s): R10.13 - Epigastric pain Condition: Good Disposition: AGAINST MEDICAL ADVICE
[2018-04-17 11:33] LABS: ABSOLUTE BASOPHILS # (AUTO) 0.1 10^3/uL (0.0-0.2); ABSOLUTE EOSINOPHILS # (AUTO) 0.1 10^3/uL (0.0-0.6); ABSOLUTE LYMPHOCYTES (AUTO) 1.1 10^3/uL (0.5-4.7); ABSOLUTE MONOCYTES (AUTO) 0.6 10^3/uL (0.1-1.4); ABSOLUTE NEUT (AUTO) 5.7 10^3/uL (1.7-8.2); BASOPHILS % (AUTO) 0.8 % (0-2); EOSINOPHILS % (AUTO) 1.1 % (0-6); HEMOGLOBIN 14.5 g/dL (13.5-17.0); LYMPHOCYTES % (AUTO) 14.9 % (13-45); MEAN CORPUSCULAR HGB CONC 34.6 g/dL (32.0-36.0); MEAN CORPUSCULAR VOLUME 95 fl (80-97); MONOCYTES % (AUTO) 7.9 % (3-13); PLATELET COUNT 247 10^3/uL (150-450); RED BLOOD COUNT 4.41 10^6/uL (4.35-5.55); RED CELL DISTRIBUTION WIDTH 13.6 % (11.5-14.0); SEGMENTED NEUTROPHILS % (AUTO) 75.3 % (42-78); TOTAL CELLS COUNTED % (AUTO) 100 %; WHITE BLOOD COUNT 7.6 10^3/uL (4.0-10.5)
[2018-04-17 11:40] LABS: APPEARANCE,URINE CLEAR; BILIRUBIN,URINE NEGATIVE (NEGATIVE); COLOR,URINE STRAW; GLUCOSE, URINE NEGATIVE (NEGATIVE); KETONES,URINE NEGATIVE (NEGATIVE); LEUKOCYTE ESTERASE,URINE NEGATIVE (NEGATIVE); NITRITE,URINE NEGATIVE (NEGATIVE); PROTEIN,URINE NEGATIVE (NEGATIVE); URINE SPECIFIC GRAVITY 1.003; UROBILINOGEN,URINE NEGATIVE mg/dL (<2.0)
[2018-04-17] MEDS ORDERED: MORPHINE SULFATE 10 MG/ML INJ IM ONE (11:54)
[2018-04-17] MEDS ORDERED: MAG HYDROX/AL HYDROX/SIMETH SUSP 30 ML UDCUP PO ONE (11:54)
[2018-04-17] MEDS ORDERED: LIDOCAINE 2% VISCOUS SOLN 20 ML UDCUP PO ONE (11:54)
[2018-04-17] MEDS ORDERED: METOCLOPRAMIDE HCL ORAL SOLN 10 MG/10 ML UDCUP PO ONE (11:54)
[2018-04-17 11:55] LABS: ALANINE AMINOTRANSFERASE 27 U/L (21-72); ALBUMIN 4.4 g/dL (3.5-5.0); ALKALINE PHOSPHATASE 81 U/L (38-126); ANION GAP 10 (5-19); ASPARTATE AMINO TRANSFERASE 29 U/L (17-59); BILIRUBIN,DIRECT 0.2 mg/dL (0.0-0.4); BILIRUBIN,TOTAL 0.5 mg/dL (0.2-1.3); BLOOD UREA NITROGEN 6 mg/dL (7-20); CARBON DIOXIDE 29 mmol/L (22-30); CHLORIDE 102 mmol/L (98-107); GLUCOSE 92 mg/dL (75-110); LIPASE 23.4 U/L (23-300); POTASSIUM 4.7 mmol/L (3.6-5.0); SODIUM 140.9 mmol/L (137-145); TOTAL PROTEIN 7.7 g/dL (6.3-8.2)
--- NOTE | 2018-04-17 12:12 | RADIOLOGY REPORT (SQ) ---
EXAM DESCRIPTION: KUB/ABDOMEN (SINGLE VIEW) COMPLETED DATE/TIME: 04/17/2018 11:24 am REASON FOR STUDY: KUB abdominal pain COMPARISON: 07/06/2017 NUMBER OF VIEWS: One view. TECHNIQUE: Supine radiographic image of the abdomen acquired. LIMITATIONS: None. FINDINGS: BOWEL GAS PATTERN: General paucity of small bowel gas. There is gas and stool present to the rectum. Moderate burden of stool in the colon. CALCIFICATIONS: No suspicious calcifications. SOFT TISSUES: No gross mass or suggestion of organomegaly. HARDWARE: None in the abdomen. BONES: No acute fracture. No worrisome bone lesions. OTHER: No other significant finding. IMPRESSION: There is a general paucity of small bowel gas, a nonspecific pattern. There are no obvi ous fluid distended loops of bowel in the abdomen to suggest obstruction. There is gas and stool pre sent to the rectum. Moderate burden of stool in the colon. No free air in the abdomen on supine rad iographs. TECHNICAL DOCUMENTATION: JOB ID: [id number] [employer]- All Rights Reserved Reading location - IP/workstation name: [email or web address]
--- NOTE | 2018-04-17 16:33 | ER Document Report ---
ED General - General Chief Complaint: Abdominal Pain Stated Complaint: ABDOMINAL PAIN Time Seen by Provider: 04/17/18 11:01 Mode of Arrival: Ambulatory Information source: Patient Notes: 42-year-old male with history of peptic ulcer disease presents with 1 week of epigastric abdominal pain. He describes the pain as achy, throbbing. Patient has had associated nausea without vomiting. He denies any diarrhea, black or bloody stools. His last bowel movement was this morning. TRAVEL OUTSIDE OF THE [place] IN LAST 30 DAYS: No - HPI Onset: Last week Onset/Duration: Persistent Quality of pain: Achy Severity: Moderate Associated symptoms: Nausea. denies: Chest pain, Diarrhea, Fever, Vomiting, Shortness of breath Exacerbated by: Denies Relieved by: Denies Similar symptoms previously: Yes Recently seen / treated by doctor: No - Related Data Allergies/Adverse Reactions: No Known Allergies Allergy (Verified 09/05/17 09:07) Past Medical History - General Information source: Patient - Social History Smoking Status: Current Every Day Smoker Cigarette use (# per day): Yes - 10 Chew tobacco use (# tins/day): No Smoking Education Provided: Yes - Smoking cessation counseling was provided for 4 minutes at the bedside Frequency of alcohol use: Rare Drug Abuse: None Lives with: Family Family History: Reviewed & Not Pertinent, COPD, Hypertension Patient has suicidal ideation: No Patient has homicidal ideation: No - Past Medical History Cardiac Medical History: Denies: Hx Coronary Artery Disease Neurological Medical History: Denies: Hx Seizures Renal/ Medical History: Denies: Hx Peritoneal Dialysis GI Medical History: Reports: Hx Gastroesophageal Reflux Disease, Hx Ulcer - stomach, admitted to [facility] in July,, gastrointestinal bleeding, ulcer Psychiatric Medical History: Reports: Hx Depression, Hx Schizoaffective Disorder - On no medications - Immunizations Immunizations up to date: Yes Hx Diphtheria, Pertussis, Tetanus Vaccination: Yes Review of Systems - Review of Systems Notes: REVIEW OF SYSTEMS: CONSTITUTIONAL : Denies fever, chills, or sweats. Denies recent illness. Denies weight loss, recent hospitalizations. EENT: Denies visual changes, eye pain. Denies sore throat, oral lesions, difficulty swallowing. CARDIOVASCULAR: Denies chest pain. Denies palpitations. Denies lower extremity edema. RESPIRATORY: Denies cough. Denies shortness of breath, wheezing. GASTROINTESTINAL: Denies abdominal distention. Denies vomiting, or diarrhea. Denies blood in vomitus, stools, or per rectum. Denies black, tarry stools. Denies constipation. GENITOURINARY: Denies difficulty urinating, painful urination, frequency, blood in urine, testicular pain or penile discharge. MUSCULOSKELETAL: Denies back or neck pain or stiffness. Denies joint pain or swelling. SKIN: Denies rash, lesions or sores. HEMATOLOGIC : Denies easy bruising or bleeding. LYMPHATIC: Denies swollen glands. NEUROLOGICAL: Denies confusion or altered mental status. Denies loss of consciousness. Denies dizziness or lightheadedness. Denies headache. Denies weakness or paralysis. Denies problems difficulty with ambulation, slurred speech. Denies sensory loss, numbness, or tingling. Denies seizures. PSYCHIATRIC: Denies anxiety or stress. Denies depression, suicidal ideation, or Physical Exam - Vital signs Vitals: Temp Pulse Resp BP Pulse Ox 98.6 F 74 14 138/81 H 100 04/17/18 10:47 04/17/18 10:47 04/17/18 10:47 04/17/18 10:47 04/17/18 10:47 - Notes Notes: PHYSICAL EXAMINATION: GENERAL: Well-appearing, well-nourished and in no acute distress. HEAD: Atraumatic, normocephalic. EYES: Pupils equal round and reactive to light, extraocular movements intact, sclera anicteric, conjunctiva are normal. ENT: Nares patent, oropharynx clear without exudates. Moist mucous membranes. NECK: Normal range of motion, supple without lymphadenopathy LUNGS: Breath sounds clear to auscultation bilaterally and equal. No wheezes rales or rhonchi. HEART: Regular rate and rhythm without murmurs ABDOMEN: Soft, epigastric abdominal pain with palpation, nondistended abdomen. No guarding, no rebound. No masses appreciated. Musculoskeletal: Normal range of motion, no pitting or edema. No cyanosis. NEUROLOGICAL: Cranial nerves grossly intact. Normal speech, normal gait. Normal sensory, motor exams PSYCH: Normal mood, normal affect. SKIN: Warm, Dry, normal turgor, no rashes or lesions noted. Course - Re-evaluation Re-evalutation: 04/17/18 16:31 Laboratory 04/17/18 04/17/18 04/17/18 11:00 11:00 11:00 WBC 7.6 RBC 4.41 Hgb 14.5 Hct 42.0 MCV 95 MCH 33.0 MCHC 34.6 RDW 13.6 Plt Count 247 Seg Neutrophils % 75.3 Lymphocytes % 14.9 Monocytes % 7.9 Eosinophils % 1.1 Basophils % 0.8 Absolute Neutrophils 5.7 Absolute Lymphocytes 1.1 Absolute Monocytes 0.6 Absolute Eosinophils 0.1 Absolute Basophils 0.1 Sodium 140.9 Potassium 4.7 Chloride 102 Carbon Dioxide 29 Anion Gap 10 BUN 6 L Creatinine 0.91 Est GFR ( Amer) > 60 Est GFR (Non-Af Amer) > 60 Glucose 92 Calcium 10.0 Total Bilirubin 0.5 Direct Bilirubin 0.2 Neonat Total Bilirubin Not Reportable Neonat Direct Bilirubin Not Reportable Neonat Indirect Bili Not Reportable AST 29 ALT 27 Alkaline Phosphatase 81 Total Protein 7.7 Albumin 4.4 Lipase 23.4 Urine Color STRAW Urine Appearance CLEAR Urine pH 7.0 Ur Specific [place] 1.003 Urine Protein NEGATIVE Urine Glucose (UA) NEGATIVE Urine Ketones NEGATIVE Urine Blood NEGATIVE Urine Nitrite NEGATIVE Urine Bilirubin NEGATIVE Urine Urobilinogen NEGATIVE Ur Leukocyte Esterase NEGATIVE Urine WBC (Auto) 0 Urine Bacteria (Auto) TRACE Urine Ascorbic Acid NEGATIVE KUB X-Ray 04/17/18 11:02 IMPRESSION: There is a general paucity of small bowel gas, a nonspecific pattern. There are no obvious fluid distended loops of bowel in the abdomen to suggest obstruction. There is gas and stool present to the rectum. Moderate burden of stool in the colon. No free air in the abdomen on supine radiographs. Temp Pulse Resp BP Pulse Ox 98.6 F 74 14 138/81 H 100 04/17/18 10:47 04/17/18 10:47 04/17/18 10:47 04/17/18 10:47 04/17/18 10:47 04/17/18 16:32 42-year-old male with history of peptic ulcer disease presents with 1 week of epigastric abdominal pain. He describes the pain as achy, throbbing. Patient has had associated nausea without vomiting. He denies any diarrhea, black or bloody stools. His last bowel movement was this morning. Prior to evaluation completion patient left against medical. I was never informed that the patient was requesting to leave. Patient was already gone with AMA paperwork signed prior to my knowledge. 04/17/18 21:18 - Vital Signs Vital signs: Temp Pulse Resp BP Pulse Ox 98.6 F 74 14 138/81 H 100 04/17/18 10:47 04/17/18 10:47 04/17/18 10:47 04/17/18 10:47 04/17/18 10:47 - Laboratory Result Diagrams: 04/17/18 11:00 04/17/18 11:00 Laboratory results interpreted by me: 04/17/18 11:00 BUN 6 L - Diagnostic Test Radiology reviewed: Image reviewed, Reports reviewed Discharge - Discharge Clinical Impression: Abdominal pain Qualifiers: Abdominal location: epigastric Qualified Code(s): R10.13 - Epigastric pain Condition: Good Disposition: AGAINST MEDICAL ADVICE
== END 2018-04-17 13:54 | disposition left against medical advice (07) ==
LOC: ER 10:34
DX: R10.13 Epigastric pain (principal); R10.9 Unspecified abdominal pain; R11.0 Nausea; F17.210 Nicotine dependence, cigarettes, uncomplicated
CPT/HCPCS: 99406; 99284; 96372; 36415; 83690; 85025; 80053; 81001; 74018; J0500; J3490; J2270

== ENCOUNTER 2018-04-18 08:33 | Emergency (ER) | payer SELFPAY ==
[2018-04-18] MEDS ORDERED: LIDOCAINE 2% VISCOUS SOLN 20 ML UDCUP PO ONE (09:47)
[2018-04-18] MEDS ORDERED: MAG HYDROX/AL HYDROX/SIMETH SUSP 30 ML UDCUP PO ONE (09:47)
[2018-04-18] MEDS ORDERED: NORMAL SALINE 1000 ML 1,000 ML IV ONE (09:47)
[2018-04-18] MEDS ORDERED: PANTOPRAZOLE SODIUM 40 MG VIAL IV ONE (09:48)
[2018-04-18 10:28] LABS: ABSOLUTE BASOPHILS # (AUTO) 0.1 10^3/uL (0.0-0.2); ABSOLUTE EOSINOPHILS # (AUTO) 0.1 10^3/uL (0.0-0.6); ABSOLUTE LYMPHOCYTES (AUTO) 1.2 10^3/uL (0.5-4.7); ABSOLUTE MONOCYTES (AUTO) 0.6 10^3/uL (0.1-1.4); ABSOLUTE NEUT (AUTO) 4.2 10^3/uL (1.7-8.2); BASOPHILS % (AUTO) 1.2 % (0-2); EOSINOPHILS % (AUTO) 1.7 % (0-6); HEMATOCRIT 43.5 % (37.9-51.0); LYMPHOCYTES % (AUTO) 20.2 % (13-45); MEAN CORPUSCULAR HEMOGLOBIN 32.9 pg (27.0-33.4); MEAN CORPUSCULAR HGB CONC 34.6 g/dL (32.0-36.0); MEAN CORPUSCULAR VOLUME 95 fl (80-97); PLATELET COUNT 221 10^3/uL (150-450); RED BLOOD COUNT 4.57 10^6/uL (4.35-5.55); RED CELL DISTRIBUTION WIDTH 13.4 % (11.5-14.0); SEGMENTED NEUTROPHILS % (AUTO) 67.9 % (42-78); TOTAL CELLS COUNTED % (AUTO) 100 %; WHITE BLOOD COUNT 6.2 10^3/uL (4.0-10.5)
[2018-04-18 10:30] LABS: APPEARANCE,URINE CLEAR; BILIRUBIN,URINE NEGATIVE (NEGATIVE); COLOR,URINE STRAW; GLUCOSE, URINE NEGATIVE (NEGATIVE); KETONES,URINE NEGATIVE (NEGATIVE); LEUKOCYTE ESTERASE,URINE NEGATIVE (NEGATIVE); NITRITE,URINE NEGATIVE (NEGATIVE); PROTEIN,URINE NEGATIVE (NEGATIVE); URINE SPECIFIC GRAVITY 1.002; UROBILINOGEN,URINE NEGATIVE mg/dL (<2.0)
[2018-04-18 10:52] LABS: ALANINE AMINOTRANSFERASE 12 U/L (21-72); ALBUMIN 4.2 g/dL (3.5-5.0); ALKALINE PHOSPHATASE 73 U/L (38-126); ANION GAP 10 (5-19); ASPARTATE AMINO TRANSFERASE 44 U/L (17-59); BILIRUBIN,DIRECT 0.3 mg/dL (0.0-0.4); BILIRUBIN,TOTAL 0.7 mg/dL (0.2-1.3); BLOOD UREA NITROGEN 7 mg/dL (7-20); CALCIUM 9.7 mg/dL (8.4-10.2); CARBON DIOXIDE 30 mmol/L (22-30); CHLORIDE 100 mmol/L (98-107); GLUCOSE 81 mg/dL (75-110); LIPASE 20.9 U/L (23-300); POTASSIUM 4.5 mmol/L (3.6-5.0); TOTAL PROTEIN 7.3 g/dL (6.3-8.2); URINE AMPHETAMINES SCREEN NEGATIVE; URINE BARBITURATES SCREEN NEGATIVE; URINE BENZODIAZEPINES SCREEN NEGATIVE; URINE COCAINE SCREEN NEGATIVE; URINE MARIJUANA (THC) SCREEN UNCONFIRMED POSITIVE; URINE METHADONE SCREEN NEGATIVE; URINE PHENCYCLIDINE SCREEN NEGATIVE
[2018-04-18 11:23] VITALS: BP 128/75
--- NOTE | 2018-04-18 14:10 | ER Document Report ---
Entered by MARIE SANDY SCRIBE 04/18/18 0950 Acting as scribe for:WINSTON NIEVES MD ED General - General Chief Complaint: Abdominal Pain Stated Complaint: ABDOMINAL PAIN Time Seen by Provider: 04/18/18 09:28 Mode of Arrival: Ambulatory Information source: Patient Notes: Patient is a 42 year old male with a history of a ulcers, GI bleed presents to the emergency department complaining of left sided abdominal pain. Patient was seen here yesterday complaining of similar symptoms but left AMA. He states during his visit he was given a GI cocktail which did not help his symptoms. He reports having frequent left sided abdominal pain further stating his current symptoms are similar to previous episodes. Patient denies being a heavy alcohol consumer at this time. TRAVEL OUTSIDE OF THE [place] IN LAST 30 DAYS: No - Related Data Allergies/Adverse Reactions: No Known Allergies Allergy (Verified 04/18/18 08:35) Past Medical History - General Information source: Patient - Social History Smoking Status: Current Every Day Smoker Chew tobacco use (# tins/day): No Frequency of alcohol use: Rare Drug Abuse: None Family History: Reviewed & Not Pertinent, COPD, Hypertension Patient has suicidal ideation: No Patient has homicidal ideation: No GI Medical History: Reports: Hx Gastroesophageal Reflux Disease, Hx Ulcer - stomach, admitted to [facility] in July,, gastrointestinal bleeding, ulcer Psychiatric Medical History: Reports: Hx Depression, Hx Schizoaffective Disorder - On no medications - Immunizations Immunizations up to date: Yes Hx Diphtheria, Pertussis, Tetanus Vaccination: Yes Review of Systems - Review of Systems Constitutional: No symptoms reported EENT: No symptoms reported Cardiovascular: No symptoms reported Respiratory: No symptoms reported Gastrointestinal: See HPI Genitourinary: No symptoms reported Male Genitourinary: No symptoms reported Musculoskeletal: No symptoms reported Skin: No symptoms reported Hematologic/Lymphatic: No symptoms reported Neurological/Psychological: No symptoms reported -: Yes All other systems reviewed and negative Physical Exam - Vital signs Vitals: Temp Pulse Resp BP Pulse Ox 98.1 F 94 16 132/85 H 100 04/18/18 08:43 04/18/18 08:43 04/18/18 08:43 04/18/18 08:43 04/18/18 08:43 - Notes Notes: GENERAL: Alert, interacts well. No acute distress. HEAD: Normocephalic, atraumatic. EYES: Pupils equal, round, and reactive to light. Extraocular movements intact. ENT: Oral mucosa moist, tongue midline. NECK: Full range of motion. Supple. Trachea midline. LUNGS: Clear to auscultation bilaterally, no wheezes, rales, or rhonchi. No respiratory distress. HEART: Regular rate and rhythm. No murmurs, gallops, or rubs. ABDOMEN: Soft, epigastric and LUQ tenderness to palpation. Non-distended. Bowel sounds present in all 4 quadrants. No guarding, rigidity, or rebound. EXTREMITIES: Moves all 4 extremities spontaneously. NEUROLOGICAL: Alert and oriented x3. Normal speech. PSYCH: Normal affect, normal mood. SKIN: Warm, dry, normal turgor. No rashes or lesions noted. Course - Re-evaluation Re-evalutation: 04/18/18 10:54 This 42-year-old male patient with chronically recurring left upper quadrant and epigastric abdominal pain. Was seen here yesterday and eloped. He does have a history of bleeding ulcer in the past. His hemoglobin is 15.0 today, is actually higher than it was yesterday. His lipase is extremely low, in the 20s. He is positive for marijuana which is not an unusual finding for him according to his history. Patient reports that his abdominal pain is much improved after GI cocktail. Reexamination shows palpating the epigastric and left upper quadrant region abdomen is not really tender at this time. The patient's lab work is unremarkable and essentially unchanged from yesterday. - Vital Signs Vital signs: Temp Pulse Resp BP Pulse Ox 98.1 F 94 16 132/85 H 100 04/18/18 08:43 04/18/18 08:43 04/18/18 08:43 04/18/18 08:43 04/18/18 08:43 - Laboratory Result Diagrams: 04/18/18 10:13 04/18/18 10:13 Laboratory results interpreted by me: 04/18/18 10:13 ALT 12 L Lipase 20.9 L Discharge - Discharge Clinical Impression: Epigastric abdominal pain GERD (gastroesophageal reflux disease) Qualifiers: Esophagitis presence: esophagitis presence not specified Qualified Code(s): K21.9 - Gastro-esophageal reflux disease without esophagitis Condition: Stable Disposition: HOME, SELF-CARE Additional Instructions: Reflux Disease (GERD) Gastro-Esophageal Reflux Disease (GERD) is caused by stomach acid refluxing back up into the esophagus. The valve at the end of the esophagus may be weak. This is common in persons with a hiatal hernia. GERD symptoms can include indigestion, chest pain, heartburn, or food "sticking." Certain foods, alcohol, and aspirin can make GERD worse. Treatment depends on the severity. Usually, antacids or acid-suppressing medicines are used. When the esophagus is acutely inflamed, the physician will often prescribe membrane-protective drugs such as Carafate. Some patients benefit from medication such as Reglan that tightens the valve at the top of the stomach. Avoid those foods that bring on your symptoms. For many people, these foods are coffee, chocolate, onions, garlic, and carbonated drinks. Don't use alcohol, aspirin, caffeine, or tobacco. Don't eat late at night -- within 4 hours of bedtime. Don't over-eat. If necessary, elevate the head of your bed about 4 inches so that stomach acid will not roll up into your esophagus. Call the doctor if you develop severe chest pain, inability to swallow fluids, fever, or worsening symptoms. Take medication as prescribed. Take antacids between meals and at bedtime. Avoid alcohol, stop smoking cigarettes and marijuana. Eat a bland diet, avoid spicy foods. Follow-up with your primary care provider if not improving. RETURN TO THE EMERGENCY ROOM IF ANY NEW OR WORSENING SYMPTOMS. Prescriptions: Omeprazole 20 mg PO DAILY #15 tablet.dr Barraza Attestation: 04/18/18 10:51 I personally performed the services described in the documentation, reviewed and edited the documentation which was dictated to the cristineibcharlie in my presence, and it accurately records my words and actions. I personally performed the services described in the documentation, reviewed and edited the documentation which was dictated to the cristineibe in my presence, and it accurately records my words and actions.
== END 2018-04-18 11:23 | disposition home or self-care (01) ==
LOC: ER 08:33
DX: K21.9 Gastro-esophageal reflux disease without esophagitis (principal); R10.12 Left upper quadrant pain; R10.13 Epigastric pain; F17.200 Nicotine dependence, unspecified, uncomplicated; Z87.11 Personal history of peptic ulcer disease
CPT/HCPCS: 99284; 96361; 96374; 36415; 83690; 85025; 80053; 81001; 80307; J3490; S0164; J7030